=== PATIENT | female | born 1955 | race Caucasian/White ===

== ENCOUNTER 2021-10-05 11:14 | Emergency (ER) | payer MEDICARE, SELFPAY ==
[2021-10-05 11:18] VITALS: BP 175/65; PULSE 100; RESP 20; TEMP 37; O2SAT 97
--- NOTE | 2021-10-05 11:36 | ECG_ITS ---
Measurements Intervals [place] Rate: 66 P: 163 WA: 161 QRS: -21 QRSD: 95 T: 124 QT: 376 QTc: 396 Interpretive Statements SINUS RHYTHM BORDERLINE LEFT AXIS DEVIATION NONSPECIFIC ST & T-WAVE ABNORMALITY BORDERLINE ECG NO PREVIOUS ECG AVAILABLE FOR COMPARISON Electronically Signed On 10-05-2021 16:12:02 CDT by Adalid Boyce M.D.
--- NOTE | 2021-10-05 11:36 | ED.ABDPAIN ---
HPI - Abdominal Pain General Chief Complaint: Abdominal Pain Stated Complaint: abd pain, vomiting Time Seen by Provider: 10/05/21 11:30 History of Present Illness HPI narrative: 66-year-old female with diabetes presented the emergency room for evaluation of epigastric bloating and nausea vomiting for 4 days. Patient reports multiple episodes of nonbilious nonbloody vomiting. Denies any abdominal pain. States that prior to vomiting, when she has to burp. Denies any constipation or diarrhea. Denies any fevers Related Data Allergies Allergy/AdvReac Type Severity Reaction Status Date / Time Penicillins Allergy Unknown Rash Verified 10/05/21 11:26 Review of Systems Review of Systems: CONSTITUTIONAL: Denies fever, chills, or sweats. EYES: Denies visual changes, redness, or discharge. ENT: Denies rhinorrhea, congestion, sore throat, or otalgia. CARDIOVASCULAR: Denies chest pain, palpitations, or edema. RESPIRATORY: Denies cough or dyspnea. GASTROINTESTINAL: Reports nausea and vomiting GENITOURINARY: Denies dysuria or hematuria. SKIN: Denies rash or itching. MUSCULOSKELETAL: Denies back pain, joint pain, or myalgia. NEUROLOGIC: Denies headache, numbness, dizziness, or weakness. PSYCHIATRIC: Denies anxiety or depression. Exam Narrative: GENERAL: Well-appearing, well-nourished, no physical limitations, and in no acute distress. HEAD: Normocephalic, atraumatic. EYES: Conjunctivae normal, PERRLA and EOMI. CHEST: Clear to auscultation. No respiratory distress. No wheezes rales or rhonchi. No tenderness. HEART: Regular rate and rhythm. No murmur heard. Normal peripheral pulses. ABDOMEN: Soft, nontender, nondistended, normal active bowel sounds. BACK: No CVA tenderness EXTREMITIES: Normal range of motion. No edema. SKIN: Warm, dry, no rash. No noted wounds NEURO: No focal deficits. Alert and oriented x3. MAEW. CN's II-XI intact bilaterally, normal gait PSYCH: Cooperative. Normal mood and affect. Course Vital Signs Vital signs: Vital Signs Temperature 37.0 C 10/05/21 11:18 Pulse Rate 100 10/05/21 11:18 Respiratory Rate 20 10/05/21 11:18 Blood Pressure 175/65 H 10/05/21 11:18 Pulse Oximetry 97 08/24/22 11:18 Oxygen Delivery Room Air 10/05/21 11:18 Temperature 37.0 C 10/05/21 11:18 Pulse Rate 78 10/05/21 13:40 Respiratory Rate 18 10/05/21 13:40 Blood Pressure 148/78 H 10/05/21 13:40 Pulse Oximetry 98 10/05/21 13:40 Oxygen Delivery Room Air 10/05/21 11:18 MDM - Abdominal Pain Lab Data Result diagrams: 10/05/21 11:34 10/05/21 12:15 Labs: Lab Results 10/05/21 10/05/21 10/05/21 Range/Units 11:34 12:13 12:15 WBC 8.3 (4.5-10.0) K/mm3 RBC 4.97 (4.2-5.4) M/mm3 Hgb 14.5 (12.0-15.0) g/dL Hct 44.7 (37.0-47.0) % MCV 89.9 (80-100) fl MCH 29.2 (26-34) pg MCHC 32.4 (32-36) g/dl RDW 14.2 (11.5-14.5) % Plt Count 299 (150-375) k/mm3 MPV 10.0 (7.4-10.4) fl Immature Gran % (Auto) 0.2 (0-0.5) % Neut % (Auto) 72.1 (45.5-73.1) % Lymph % (Auto) 18.1 L (18.3-44.2) % [place] % (Auto) 7.1 (2.6-8.5) % Eos % (Auto) 1.7 (0-4.4) % Baso % (Auto) 0.8 (0.2-1.2) % Lymph # (Auto) 1.50 (0.9-3.2) K/mm3 [place] # (Auto) 0.6 (0.1-0.6) K/mm3 Eos # (Auto) 0.1 (0-0.3) K/mm3 Baso # (Auto) 0.1 (0.0-0.1) K/mm3 Abs Immat Gran (auto) 0.02 (0.00-0.031) K/mm3 Absolute Neuts (auto) 6.0 (1.3-6.7) K/mm3 Absolute Nucleated RBC 0.0 (0.0-0.012) K/mm3 Nucleated RBC % 0.0 (0.0-0.2) % Sodium 139 (137-145) mmol/L Potassium 4.3 (3.4-5.0) mmol/L Chloride 103 (98-107) mmol/L Carbon Dioxide 28 (22-30) mmol/L Anion Gap 8 (8-16) mmol/L BUN 19 H (7-17) mg/dL Creatinine 0.80 (0.7-1.0) mg/dL Estim Creat Clear Calc Not Reportable Estimated GFR > 60 (59 - ) Glucose 158 H (65-110) mg/dL Calcium 8.8 (8.4-10.2) mg/dL Total Bilirubin 0.6
[2021-10-05 11:45] LABS: Basophils Absolute Auto 0.1 K/mm3 (0.0-0.1); Basophils Percent Auto 0.8 % (0.2-1.2); Eosinophils Absolute Auto 0.1 K/mm3 (0-0.3); Eosinophils Percent Auto 1.7 % (0-4.4); Hematocrit 44.7 % (37.0-47.0); Hemoglobin 14.5 g/dL (12.0-15.0); Immature Granulocyte Absolute 0.02 K/mm3 (0.00-0.031); Immature Granulocyte Percent A 0.2 % (0-0.5); Lymphocytes Percent Auto 18.1 % (18.3-44.2); Mean Corpuscular HGB Conc 32.4 g/dl (32-36); Mean Corpuscular Hemoglobin 29.2 pg (26-34); Mean Corpuscular Volume 89.9 fl (80-100); Monocytes Absolute Auto 0.6 K/mm3 (0.1-0.6); Monocytes Percent Auto 7.1 % (2.6-8.5); Neutrophils Percent Auto 72.1 % (45.5-73.1); Platelet Count Result 299 k/mm3 (150-375); Red Blood Count 4.97 M/mm3 (4.2-5.4); Red Cell Distribution Width 14.2 % (11.5-14.5); White Blood Count 8.3 K/mm3 (4.5-10.0)
[2021-10-05] MEDS: SODIUM CHLORIDE 0.9% IV 1,000 ML 999 ML IV CONT (11:57)
[2021-10-05 12:17] VITALS: BP 144/72; PULSE 70; RESP 16; O2SAT 97
[2021-10-05 12:36] LABS: Appearance Urine Clear (Clear); Bilirubin Urine 1+ (Negative); Blood Urine Negative (Negative); Color Urine Yellow (Yellow); Glucose Urine UA Negative (Negative); Ketones Urine Negative (Negative); Leukocyte Esterase Ur Negative LEU/UL (Negative); Nitrate Urine Negative (Negative); Protein Urine 3+ mg/dL (Negative); Specific Grav Ur >= 1.030 (1.001-1.035); Urobilinogen Urine 0.2 mg/dL (<2.0); pH Urine 5.5 (5.0-9.0)
[2021-10-05 12:39] LABS: Alanine Aminotransferase 35 U/L (6-35); Albumin Level 4.3 g/dL (3.5-5.1); Alkaline Phosphatase 70 U/L (38-126); Anion Gap 8 mmol/L (8-16); Aspartate Amino Transferase 31 U/L (14-36); Bilirubin,Total 0.6 mg/dL (0.2-1.3); Blood Urea Nitrogen 19 mg/dL (7-17); Calcium 8.8 mg/dL (8.4-10.2); Carbon Dioxide 28 mmol/L (22-30); Chloride 103 mmol/L (98-107); Estimated Glomerular Filt Rate > 60; Glucose 158 mg/dL (65-110); Lipase 75 U/L (23-300); Potassium 4.3 mmol/L (3.4-5.0); Sodium 139 mmol/L (137-145)
[2021-10-05 12:43] LABS: Bacteria Urine Trace /hpf; Mucus Urine Rare /lpf; RBC Urine 0-2 /hpf (0-2); Squamous Epithelial Cell Urine Rare /hpf (Few); WBC Urine 0-3 /hpf
[2021-10-05 12:48] LABS: Add Urine Microscopic? YES
[2021-10-05 13:40] VITALS: BP 148/78; PULSE 78; RESP 18; O2SAT 98
== END 2021-10-05 13:41 | disposition home or self-care (01) ==
PROVIDERS: Preventive Medicine Aerospace Medicine; Emergency Provider Nurse Practitioner Family; PCP Family Medicine
DX: R11.2 Nausea with vomiting, unspecified (principal); R94.31 Abnormal electrocardiogram [ECG] [EKG]
CPT/HCPCS: 36415; 80053; 81001; 83690; 85025; 93005; 96360; 99283; A9270; J7030

== ENCOUNTER 2022-01-12 00:33 | Day surgery (SDC) | payer MEDICARE, SELFPAY ==
[2021-12-27 14:44] VITALS: BMI 34.3
--- NOTE | 2022-01-11 15:14 | PM.HPGS ---
History of Present Illness History of Present Illness Consent: Risks, benefits, and alternatives have been discussed and questions answered. Patient agrees to proceed with procedure. Chief complaint: family hx colon ca, hx colon polyps Narrative: Cira Umanzor is a 66 year old female Here for colon cancer screening. She has a family history of colon cancer in both parents. Review of Systems Review of Systems: All systems reviewed & are unremarkable except as noted in HPI and below PMFSH Social History Social History Smoking status: Former smoker Tobacco type: cigarettes Living arrangements: with family Meds Home Medications and Allergies Home Medications Medication Instructions Recorded Confirmed Type glimepiride 2 mg tablet 4 mg PO DAILY 12/27/21 01/12/22 History lisinopril 20 mg tablet 20 mg PO DAILY 12/27/21 01/12/22 History metformin 500 mg tablet,extended 500 mg PO DAILY 12/27/21 01/12/22 History release 24 hr rosuvastatin 40 mg tablet 40 mg PO DAILY 12/27/21 01/12/22 History Allergies Allergy/AdvReac Type Severity Reaction Status Date / Time Penicillins Allergy Unknown Rash Verified 01/12/22 06:17 Exam Const: General: alert Orientation/consciousness: patient oriented x3 Resp: Auscultation: clear to auscultation bilaterally Cardio: Rhythm: regular rhythm GI: GI Palp: Yes Soft to palpation and No Tenderness to palpation present (GI) Neuro: General: patient oriented x3 Assessment and Plan Assessment and plan (1) Colon cancer screening: Code(s): Z12.11 - Encounter for screening for malignant neoplasm of colon Status: Acute Assessment and Plan: Colonoscopy with possible biopsy or polypectomy or cautery or injection of substances.
[2022-01-12 06:20] VITALS: BP 147/67; PULSE 71; RESP 20; TEMP 36.2; O2SAT 97; BMI 33.7
[2022-01-12] MEDS: LACTATED RINGERS 1,000 ML 150 ML IV CONT (06:23)
[2022-01-12 06:42] LABS: Glucose Point of Care 161 mg/dl (65-105)
--- NOTE | 2022-01-12 07:16 | WPDANESEPPF ---
Anes - Initial Pre Proc Eval Procedure: Operation Date: 01/12/22 07:30 Proposed Procedures p Screening Colonoscopy - Reji Degroot MD Date/Time: 01/12/22 07:16 Surgeon: Reji Degroot MD Pre Op Diagnosis: family hx colon ca, hx colon polyps Patient Data Age: 66 Gender: F Height: 1.63 m Weight: 89.3 kg Last Vital Signs Temp 36.2 C L 01/12/22 06:20 Pulse 71 01/12/22 06:20 Resp 20 01/12/22 06:20 BP 147/67 H 01/12/22 06:20 Pulse Ox 97 01/12/22 06:20 O2 Del Method Room Air 01/12/22 06:20 Allergies Allergy/AdvReac Type Severity Reaction Status Date / Time Penicillins Allergy Unknown Rash Verified 01/12/22 06:17 Home Medications Medication Instructions Recorded Confirmed Type glimepiride 2 mg tablet 4 mg PO DAILY 12/27/21 01/12/22 History lisinopril 20 mg tablet 20 mg PO DAILY 12/27/21 01/12/22 History metformin 500 mg tablet,extended 500 mg PO DAILY 12/27/21 01/12/22 History release 24 hr rosuvastatin 40 mg tablet 40 mg PO DAILY 12/27/21 01/12/22 History Laboratory Tests 01/12/22 06:39 POC Capillary Glucose 161 mg/dl H mg/dl (65-105) Patient hx anesthesia problems: none Family hx anesthesia problems: pseudocholinesterase deficiency (daughter) Results Review: All pre-operative results and documents have been reviewed as part of the pre-operative evaluation. [facility] Past Medical History Medical History Arthritis Diabetes Hyperlipidemia Hypertension Social History Social History Smoking status: Former smoker Tobacco type: cigarettes Living arrangements: with family Anes - Eval Final PreProcedure Day of Procedure 01/12/22 07:16 Patient weight: obese Heart: regular rate and rhythm Lungs: clear to auscultation Airway: Mallampati scale class II Neurological: alert and oriented Last oral intake: >/= 8 hours ASA classification: III Emergent: no Anesthetic plan: proceed Anesthesia type and monitoring: general GIVS and standard monitoring Results Review: All pre-operative results and documents have been reviewed as part of the pre-operative evaluation. Informed Consent: The patient's anesthetic plan and its attendant risks and benefits were discussed with the patient/family/POA. Questions were solicited and answers provided to the satisfaction of the patient/family/POA.
[2022-01-12 07:41] VITALS: BP 91/46; PULSE 62; RESP 27; O2SAT 97
[2022-01-12 07:51] VITALS: BP 97/56; PULSE 64; RESP 16; O2SAT 97
[2022-01-12 08:01] VITALS: BP 120/44; PULSE 58; RESP 16; O2SAT 98
== END 2022-01-12 08:11 | disposition home or self-care (01) ==
PROVIDERS: PCP Family Medicine; Visit Provider Internal Medicine Gastroenterology
PROC: 0DJD8ZZ Inspection of Lower Intestinal Tract, Via Natural or Artificial Opening Endoscopic (ICD-10-PCS; CPT 45378; principal; 2022-01-12 07:30)
DX: Z12.11 Encounter for screening for malignant neoplasm of colon (principal); K57.30 Diverticulosis of large intestine without perforation or abscess without bleeding; Z80.0 Family history of malignant neoplasm of digestive organs; E11.9 Type 2 diabetes mellitus without complications; E78.5 Hyperlipidemia, unspecified; I10 Essential (primary) hypertension; Z79.84 Long term (current) use of oral hypoglycemic drugs; Z87.891 Personal history of nicotine dependence; E66.9 Obesity, unspecified; Z68.33 Body mass index [BMI] 33.0-33.9, adult
CPT/HCPCS: G0105; 82948; J2704; J7120

== ENCOUNTER 2022-11-30 17:45 | Emergency (ER) | payer MEDICARE, SELFPAY ==
--- NOTE | ~2022-11-30 | CT_ITS ---
EXAMINATION: CT abdomen pelvis w con INDICATION: Right-sided abdominal pain TECHNIQUE: Computed tomographic images of the abdomen and pelvis were obtained after the administrati on of 100 cc of Omnipaque 350 intravenous contrast. The dose-length product (DLP) was 889.53 mGy-cm. Automated exposure control and iterative reconstruction technique were employed. COMPARISON: 09/11/2017 FINDINGS: There is a stable 6 mm nodule abutting the major fissure on the right. Punctate calcificati ons in an otherwise normal spleen likely represent healed granulomatous disease. The liver, pancreas, and adrenal glands are normal. Stones are present in the nondistended gallbladder. Cysts of the kidn eys measure up to 3.6 cm on the right. There is calcified atherosclerosis of the aorta and many of th e other arteries. No pathologically enlarged abdominal or pelvic lymph nodes are identified. No free intraperitoneal gas or evidence of bowel obstruction. There is mild lumbar spondylosis. There is a sm all umbilical hernia containing fat. IMPRESSION: 1. No CT correlate for the patient's symptoms. Reviewed, dictated and finalized at location F.
[2022-11-30 18:03] VITALS: BP 149/68; PULSE 87; RESP 18; TEMP 36.6; O2SAT 96
[2022-11-30 18:19] LABS: Basophils Absolute Auto 0.1 K/mm3 (0.0-0.1); Basophils Percent Auto 0.8 % (0.2-1.2); Eosinophils Absolute Auto 0.1 K/mm3 (0-0.3); Eosinophils Percent Auto 1.3 % (0-4.4); Hemoglobin 13.9 g/dL (12.0-15.0); Immature Granulocyte Absolute 0.02 K/mm3 (0.00-0.031); Immature Granulocyte Percent A 0.2 % (0-0.5); Lymphocytes Absolute Auto 1.38 K/mm3 (0.9-3.2); Lymphocytes Percent Auto 14.6 % (18.3-44.2); Mean Corpuscular HGB Conc 31.6 g/dl (32-36); Mean Corpuscular Hemoglobin 28.5 pg (26-34); Mean Corpuscular Volume 90.3 fl (80-100); Mean Platelet Volume 10.2 fl (7.4-10.4); Monocytes Absolute Auto 0.7 K/mm3 (0.1-0.6); Monocytes Percent Auto 7.1 % (2.6-8.5); Neutrophils Absolute Auto 7.2 K/mm3 (1.3-6.7); Platelet Count Result 299 k/mm3 (150-375); Red Blood Count 4.87 M/mm3 (4.2-5.4); Red Cell Distribution Width 14.3 % (11.5-14.5); White Blood Count 9.5 K/mm3 (4.5-10.0)
[2022-11-30 18:30] LABS: Alanine Aminotransferase 38 U/L (6-35); Albumin Level 4.3 g/dL (3.5-5.1); Alkaline Phosphatase 83 U/L (38-126); Anion Gap 10 mmol/L (8-16); Aspartate Amino Transferase 30 U/L (14-36); Bilirubin,Total 0.7 mg/dL (0.2-1.3); Blood Urea Nitrogen 24 mg/dL (7-17); Calcium 9.1 mg/dL (8.4-10.2); Carbon Dioxide 21 mmol/L (22-30); Chloride 104 mmol/L (98-107); Estimated CRCL calculation 63 ml/min; Estimated Glomerular Filt Rate > 60; Glucose 170 mg/dL (65-110); Lipase 81 U/L (23-300); Potassium 3.7 mmol/L (3.4-5.0); Sodium 135 mmol/L (137-145)
[2022-11-30 19:30] LABS: Appearance Urine Cloudy (Clear); Bacteria Urine None Seen /hpf; Bilirubin Urine Negative (Negative); Blood Urine Negative (Negative); Color Urine Dark Yellow (Yellow); Glucose Urine UA Negative (Negative); Ketones Urine Negative (Negative); Leukocyte Esterase Ur 1+ LEU/UL (Negative); Nitrate Urine Negative (Negative); Protein Urine 2+ mg/dL (Negative); RBC Urine 0-2 /hpf (0-2); Specific Grav Ur 1.023 (1.001-1.035); Squamous Epithelial Cell Urine Moderate /hpf (Few)
[2022-11-30] MEDS: ONDANSETRON INJ 4 MG/2 ML VIAL IV PUSH (19:38)
[2022-11-30] MEDS: SODIUM CHLORIDE 0.9% IV 1,000 ML 999 ML IV CONT (19:38)
[2022-11-30 19:43] LABS: Add Urine Microscopic? YES
--- NOTE | 2022-11-30 19:49 | ED.GENADULT ---
HPI - General Adult General Chief complaint: Abdominal Pain Stated complaint: R ABD pain/diarrhea/lethargic Time Seen by Provider: 11/30/22 19:10 History of Present Illness HPI narrative: Patient 67-year-old female who presents the emergency department with chief complaint of abdominal pain. Patient reports that since this weekend she has been having diarrhea and nausea. Patient states that her stool has turned to a renee colored and reports that she started having pain in the right side of her abdomen. Patient reports that the pain is not improved or worsened by anything. But has improved gradually on its own without any intervention. The patient denies fever reports her only abdominal surgery is a hysterectomy. Patient denies sick contacts denies travel Related Data Allergies Allergy/AdvReac Type Severity Reaction Status Date / Time Penicillins Allergy Swelling Verified 11/30/22 18:06 Review of Systems Review of Systems: A 10 system review of systems was completed on the patient and is negative except for what is stated in the HPI. Nursing and ancillary documentation was reviewed. Exam Narrative: GENERAL: Well-appearing, well-nourished, and in no acute distress. HEAD: Normocephalic, atraumatic. EYES: PERRLA and EOMI. ENT: Nares clear, no rhinorrhea or epistaxis. Mucous membranes moist. NECK: Supple. CHEST: Clear to auscultation. No respiratory distress. HEART: Regular rate and rhythm. No murmur heard. Normal peripheral pulses. ABDOMEN: Soft, tenderness to palpation in the right side of the abdomen worse in the right upper quadrant, nondistended, normal active bowel sounds. EXTREMITIES: Normal range of motion. No edema. SKIN: Warm, dry, no rash. NEURO: No focal deficits. Alert and oriented x3. PSYCH: Normal mood and affect. Course Vital Signs Vital signs: Vital Signs Temperature 36.6 C 11/30/22 18:03 Pulse Rate 87 11/30/22 18:03 Respiratory Rate 18 11/30/22 18:03 Blood Pressure 149/68 H 11/30/22 18:03 Pulse Oximetry 96 11/30/22 18:03 Oxygen Delivery Room Air 11/30/22 18:03 Temperature 36.6 C 11/30/22 18:03 Pulse Rate 87 11/30/22 18:03 Respiratory Rate 18 11/30/22 18:03 Blood Pressure 149/68 H 11/30/22 18:03 Pulse Oximetry 96 11/30/22 18:03 Oxygen Delivery Room Air 11/30/22 18:03 Medical Decision Making MDM Narrative Medical decision making narrative: Differential diagnosis includes gastroenteritis UTI, colitis diverticulitis, cholecystitis Patient received IV fluids Zofran and underwent laboratory testing. CBC was within normal limits electrolytes showed normal renal function liver enzymes were essentially unremarkable bilirubin was 0.7 AST was 30 ALT was 38 which was slightly elevated alk phos was normal at 83 lipase was normal at 81 urinalysis was cloudy with 1+ leukocyte esterase and 6-10 white blood cells. The patient will be treated for UTI CT scan of the abdomen pelvis showed no acute abnormality Vital Signs Vital Signs: Vital Signs Temperature 36.6 C 11/30/22 18:03 Pulse Rate 87 11/30/22 18:03 Respiratory Rate 18 11/30/22 18:03 Blood Pressure 149/68 H 11/30/22 18:03 Pulse Oximetry 96 11/30/22 18:03 Oxygen Delivery Room Air 11/30/22 18:03 Temperature 36.6 C 11/30/22 18:03 Pulse Rate 87 11/30/22 18:03 Respiratory Rate 18 11/30/22 18:03 Blood Pressure 149/68 H 11/30/22 18:03 Pulse Oximetry 96 11/30/22 18:03 Oxygen Delivery Room Air 11/30/22 18:03 Lab Data 11/30/22 18:10 11/30/22 18:10 Labs: Lab Results 11/30/22 11/30/22 Range/Units 18:10 19:10 WBC 9.5 (4.5-10.0) K/mm3 RBC 4.87 (4.2-5.4) M/mm3 Hgb 13.9 (12.0-15.0) g/dL Hct 44.0 (37.0-47.0) % MCV 90.3 (80-100) fl MCH 28.5 (26-34) pg MCHC 31.6 L (32-36) g/dl RDW 14.3 (11.5-14.5) % Plt Count 299 (150-375) k/mm3 MPV 10.2 (7.4-10.4) fl Immature Gran % (Auto) 0
[2022-11-30 22:00] VITALS: BP 140/72; PULSE 78; RESP 18; TEMP 36.7; O2SAT 100
== END 2022-11-30 22:01 | disposition home or self-care (01) ==
PROVIDERS: Emergency Medicine; Emergency Provider Emergency Medicine; PCP Family Medicine
DX: N39.0 Urinary tract infection, site not specified (principal); R19.7 Diarrhea, unspecified; R10.11 Right upper quadrant pain
CPT/HCPCS: 36415; 74177; 80053; 81001; 83690; 85025; 87086; 96361; 96374; 99284; J2405; J7030; Q9967

== ENCOUNTER 2023-07-11 07:49 | Outpatient (CLI) | payer MEDICARE, SELFPAY ==
--- NOTE | 2023-07-11 13:43 | P.PCNPFT_ITS ---
PFT Procedure Performed PFT Procedure Performed Spirometry with Pre/Post Bronchodilator Plethysmography (Lung Vol) Diffusing Cap (DLCO) Flow Vol Loop PFT Interpretation Lung volumes were measured with the body plethysmography method. The lung volumes are unremarkable. Spirometry showed diminished expiratory flow rates and a diminished FEV1 to FVC ratio 54%, consistent with obstructive airway disease. Following administration of a bronchodilator, there was significant increase in the forced vital capacity. Lung diffusion capacity is moderately reduced at 50% predicted. The diminished lung diffusion capacity coupled with diminished alveolar volume and a normal DLCO/VA ratio may indicate loss of alve olar capillary structure as seen in emphysema or interstitial lung disease. Clinical correlation advised. The flow-volume loop is consistent with obstructive airway disease. Impression: Moderate obstructive airway disease with significant response to bronchodilators on this testing. Moderately reduced lung diffusion capacity.
--- NOTE | 2023-07-18 08:42 | WPDSIXMINUTE ---
Six Minute Walk Procedure Procedure Performed Pulmonary Stress Test (6 min walk) Six Minute Walk Six Minute Walk: This 6 minute walk test was conducted with the patient breathing ambient air. The pre walk baseline oxyhemoglobin saturation was 96%. The patient walked 305 m with no stops during testing. During the walk the oxyhemoglobin saturation remained in the range of 90% to 96%. Impression: No evidence of oxyhemoglobin desaturation on this testing.
== END 2023-07-11 07:50 | disposition home or self-care (01) ==
PROVIDERS: PCP Family Medicine; Visit Provider Physician Assistant
DX: R06.09 Other forms of dyspnea (principal); J44.9 Chronic obstructive pulmonary disease, unspecified; Z87.891 Personal history of nicotine dependence
CPT/HCPCS: 94060; 94618; 94726; 94729

== ENCOUNTER 2023-09-25 01:50 | Day surgery (SDC) | payer MEDICARE, SELFPAY ==
[2023-09-11 12:03] VITALS: BMI 33.7
[2023-09-25 10:05] VITALS: BP 149/61; PULSE 72; RESP 20; TEMP 36.3; O2SAT 97; BMI 33.9
--- NOTE | 2023-09-25 10:20 | WPDANESEPPF ---
Anes - Initial Pre Proc Eval Procedure: Operation Date: 09/25/23 11:30 Proposed Procedures p Esophagogastroduodenoscopy - Alejandro Best MD Date/Time: 09/25/23 10:20 Surgeon: Alejandro Best MD Pre Op Diagnosis: GERD Patient Data Age: 68 Gender: F Height: 1.63 m Weight: 89.25 kg Allergies Allergy/AdvReac Type Severity Reaction Status Date / Time Penicillins Allergy Severe Hives Verified 09/25/23 10:13 simvastatin AdvReac Intermediate Muscle Pain Verified 09/25/23 10:13 Home Medications Medication Instructions Recorded Confirmed Type glimepiride 2 mg tablet 4 mg PO BID 12/27/21 09/25/23 History metformin 500 mg tablet,extended 500 mg PO BID 12/27/21 09/25/23 History release 24 hr albuterol sulfate 90 mcg/actuation 2 puff inhalation Q4H PRN 04/23/23 09/25/23 History aerosol inhaler Shortness Of Breath Or Wheezing pantoprazole 40 mg tablet,delayed 40 mg PO QAM PRN REFLUX 04/23/23 09/25/23 History release atorvastatin 80 mg tablet 80 mg PO DAILY 09/11/23 09/25/23 History lisinopril 2.5 mg tablet 2.5 mg PO DAILY 09/11/23 09/25/23 History ayzrpxiu-cvoymbmh-qddaq acid 120 2 tablet PO DAILY 09/11/23 09/25/23 History mcg-lutein 100 mcg-herb no.329 tablet (Alive Diabetic Multivitamin) Patient hx anesthesia problems: none Family hx anesthesia problems: none Results Review: All pre-operative results and documents have been reviewed as part of the pre-operative evaluation. [facility] Past Medical History Medical History Albuminuria Arthritis Chronic cough Diabetes Dyslipidemia Essential hypertension Gastroesophageal reflux disease Hyperlipidemia Hypertension Lung nodules Osteoarthritis Osteopenia Osteoporosis Polyp of colon Varicose veins of lower extremity Social History Social History Smoking packs per day: 1 Smoking cigarettes per day: 20.0 Years smoked: 40 Smoking pack-years: 40.00 Smoking status: Former smoker Tobacco type: cigarettes Smokeless tobacco user: chewing tobacco Alcohol intake: current Alcohol use details: Occasional Substance use: never Substance use type: does not use Living arrangements: with family Spiritual care concerns: No Anes - Eval Final PreProcedure Day of Procedure 09/25/23 10:20 Patient weight: overweight Emergent: no Anesthetic plan: delay Results Review: All pre-operative results and documents have been reviewed as part of the pre-operative evaluation. Pt is to have a full cardiac workup next week w visit and stress test. She has been having some dypsnea w activity. Discussed w pt and that will delay her case today for elective GI procedure and have cardiac eval first. Future GI workup pending results of cardiac eval. Discussed w GI RNs. Informed Consent: The patient's anesthetic plan and its attendant risks and benefits were discussed with the patient/family/POA. Questions were solicited and answers provided to the satisfaction of the patient/family/POA.
--- NOTE | 2023-09-25 10:33 | SUR.PREOP ---
Following patient conversation with Dr. Kuhn, procedure will be canceled for today due to cardiac work-up needs.
== END 2023-09-25 10:35 | disposition home or self-care (01) ==
PROVIDERS: PCP Internal Medicine; Visit Provider Internal Medicine Gastroenterology
PROC: 0DJ08ZZ Inspection of Upper Intestinal Tract, Via Natural or Artificial Opening Endoscopic (ICD-10-PCS; CPT 43235; principal; 2023-09-25 11:30)
DX: K21.9 Gastro-esophageal reflux disease without esophagitis (principal); Z53.8 Procedure and treatment not carried out for other reasons
CPT/HCPCS: 99211; G0463

== ENCOUNTER 2024-01-15 09:48 | Outpatient (CLI) | payer MEDICARE, SELFPAY ==
--- NOTE | ~2024-01-15 | CT_ITS ---
CT Scan of the Chest without Contrast: Clinical Indication: Lung cancer screening, nicotine dependence Technique: Contiguous sections were acquired throughout the chest without intravenous contrast. Dose reduction technique was used on this scan by utilizing automated exposure control and iterative recon struction technique. The dose-length product (DLP) was 148.00 mGy-cm. Findings: There is no evidence of any significant mediastinal, hilar or axillary lymphadenopathy. The mediastin al soft tissues appear normal. There is no evidence of pleural or pericardial effusion. 4 mm right upper lobe pulmonary nodule present (axial image 38). Additional 4 mm right upper lobe nod ule present (axial image 50). 7 mm right lower lobe pulmonary nodule present (axial image 72). 4 mm l ingular nodule present (axial image 74). Images through the upper abdomen reveal calcified gallstone. T7 compression fracture present, age-ind eterminate. Impression: Lung RADS 3: Probably benign. Six-month follow-up CT advised. Additional findings, as above. Reviewed, dictated and finalized at location . [facility] Impression: Lung RADS 3: Probably benign. Six-month follow-up CT advised. Additional findings, as above.
== END 2024-01-15 09:49 | disposition home or self-care (01) ==
PROVIDERS: PCP Internal Medicine; Visit Provider Physician Assistant
DX: Z12.2 Encounter for screening for malignant neoplasm of respiratory organs (principal); Z87.891 Personal history of nicotine dependence; R91.8 Other nonspecific abnormal finding of lung field
CPT/HCPCS: 71271

== ENCOUNTER 2024-09-08 08:56 | Outpatient (CLI) | payer MEDICARE, SELFPAY ==
--- NOTE | ~2024-09-08 | CT_ITS ---
CT Scan of the Chest without Contrast: Clinical Indication: Pulmonary nodule Technique: Contiguous sections were acquired throughout the chest without intravenous contrast. Dose reduction technique was used on this scan by utilizing automated exposure control and iterative recon struction technique. The dose-length product (DLP) was 172.28 mGy-cm. COMPARISON: 01/15/2024 Findings: There is no evidence of any significant mediastinal, hilar or axillary lymphadenopathy. The mediastin al soft tissues appear normal. There is no evidence of pleural or pericardial effusion. Stable 4 mm right upper lobe pulmonary nodule present (axial image 36). Stable additional 3 mm right upper lobe nodule (axial image 48). Stable 7 mm right lower lobe pulmonary nodule (axial image 69). Images through the upper abdomen reveal calcified gallstone. Chronic T7 compression deformity present . Impression: Lung RADS 2: Benign appearance. 12 month follow-up screening CT advised. Reviewed, dictated and finalized at [facility]. Impression: Lung RADS 2: Benign appearance. 12 month follow-up screening CT advised.
--- OUTSIDE RECORDS SUMMARY | 2024-09-08 09:10 | XMS_ITS | Referral Summary ---
Author Organization [facility] Address [facility] [place] [address] Care Team Providers Care Home Aide Name Role Phone Aminah Lim MD Primary Care Provide r Allergies Active Allergy Reactions Criticality Noted Date Comments Penicillins Rash Medium 09/20/2023 Simvastatin Muscle pain Medium 09/20/2023 Medications atorvastatin (LIPITOR) 80 mg tablet Take 1 tablet every day by oral route. Active Accu-Chek Guide test strips strip USE 1 STRIP TWICE DAILY TO TEST BLOOD GLUCOSE 09/12/2023 Active Accu-Chek Guide Glucose Meter misc USE TO TEST BLOOD GLUCOSE TWICE A DAY 09/10/2023 Active glimepiride (AMARYL) 2 mg tablet Take by mouth 2 (two) times a day Active Accu-Chek Softclix Lancets lancets 09/10/2023 Act gilma lisinopriL (PRINIVIL,ZESTR IL) 2.5 mg tablet Take 1 tablet every day by oral route for 90 days. Active metFORMIN XR (GLUCOPHAGE XR) 500 mg 24 hr tablet 09/10/[address] (PROTONIX) 40 mg EC tablet Take 1 tablet(s) every day by oral route. Active aspirin 81 mg enteric coated tabletIndicatio ns:prevention of thrombosis Take 1 tablet (81 mg total) by mouth daily 09/20/2023 Active Active Problems Problem Noted Date Diagnosed Date Enlarged pulmonary artery 09/20/2023 Former smoker 09/20/2023 Coronary artery calcification seen on CT scan Family history of premature CAD 09/20/2023 Hyperlipidemia associated with type 2 diabetes m ellitus 09/20/2023 Hypertension associated with diabetes 09/20/2023 Lipid screening 09/20/2023 Essential (primary) hypertension 09/20/2023 ALEXANDRE (dyspnea on exertion) 09/20/2023 Social History Tobacco Use Types Packs/Day Years Used Date Smoking Tobacco: Former Cigarettes S tarted: 2019 Smokeless Tobacco: Never Tobacco Cessation:Counseling Given: No Comments Unknown Sex and Gender Information Value Date Recorded Sex Assigned at Not on file Legal Sex Female 4:00 PM STOCK ANALYST Gender Identity Not on file Sexual Orientation Not on file Last Filed Vital Signs Vital Sign Reading Time Taken Comments Blood Pressure 128/64 01/08/2024 1:06 PM STOCK ANALYST Pulse 68 01/08/2024 1:06 PM STOCK ANALYST Temperature - - Respiratory Rate 14 09/20/2023 8:17 AM CDT Oxygen Saturation 95% 01/08/2024 1:06 PM STOCK ANALYST Inhaled Oxygen Concentration - - Weight 91.2 kg (201 lb) 01/08/2024 1:06 PM STOCK ANALYST Height 162.6 cm (5' 4) 01/08/2024 1:06 PM STOCK ANALYST Body Mass Index 34.5 01/08/2024 1:06 PM STOCK ANALYST Plan of Treatment Not on file Procedures Procedure Name Priority Date/Time Associated Diagnosis Comments LIPID PANEL Routine 11/23/2023 3:21 PM CDT from Last 3 Months or Most Recently Relevant to Health Maintenance Results * Lipid panel (11/23/2023 3:21 PM CDT) SCRIBED Cholesterol, Total 158 <200 EXTERNAL LAB SCRIBED HDL 60 >40 EXTERNAL LAB SCRIBED LDL 78 <100 EXTERNAL LAB SCRIBED Triglycerides 102 <150 EXTERNAL LAB Blood us Historical Provider LAB BLOOD ORDERABLES Edit ed Result - Final EXTERNAL LAB from Last 3 Months or Most Recently Relevant to Health Maintenance Insurance [facility] MEDICARE HMO Care Teams Home Aide Relationship Specialty Start Date End Date Aminah Lim MD [address] [address] PCP - General Internal Medicine 01/08/24
--- OUTSIDE RECORDS SUMMARY | 2024-09-08 09:10 | XMS_ITS | Continuity of Care Document ---
Author Organization [facility] Address [address] [place] [address] [address] [place] [address] Phone Care Team Providers Care Director Community Health Nursing Name Role Phone Doisy, Edward Unavailable Unavailable Advance Directives Directive Yes / No Effective Date File Name No Information Encounters Encounter Description Practice Location Reason(s) For Visit Diagnoses Date Provider Providers Copied on Encounter [facility], [address] [place], [place], [id number], [place] tel:[phone] SEC Formerly named [facility] No Information Apr-2 5-200 5 Doisy Edward. [address] [facility] , [address], [place], [address], [place]. tel:[phone] Family History Family Member Type Diagnosis Age At Onset No Information Payers Payer name Insurance type Covered alliance party ID Authoriza tiruth(s) [facility] Commercial CI [id number] Social History Type Description Quantity Date Captured Comments Sex Female Smoking Status No Information Chief Complaint And Reason For Visit No Information Reason For Referral Reason For Referral No Information History Of Present Illness Encounter Date Complaint History Of Prese nt Illness No Information Functional Status Date Functional Assessmen t No Information Instructions Date Instruction Additional Infor mation No Information Assessments Type Assessment Date No Information Patient Care Teams Name Effective Dates (start - stop) Status Members No Information
--- OUTSIDE RECORDS SUMMARY | 2024-09-08 09:10 | XMS_ITS | Clinical Summary ---
Author Organization [facility] Address [address] [place] [id number] Care Team Providers Care Building Manager Name Role Phone Aminah Lim MD Primary [...] hypertension 09/20/2023 ALEXANDRE (dyspnea on exertion) 09/20/2023 Medical History Medical History Date Comments Diabetes mellitus (HCC) Hyperlipidemia Family History Medical History Relation Name Comments No Known Problems Brother bypass Father No Known Problems Father's Brother No Known Problems Father's Sister No Known Problems Maternal Grandfather Stroke Maternal Grandmother Colon cancer Mother No Known Problems Mother's Brother No Known Problems Mother's Sister No Known Problems Other Heart attack Paternal Grandfather Cancer Paternal Grandmother No Known Problems Sister Relation Name Status Comments Brother Father Alive Father's Brother Father's Sister Maternal Grandfather Maternal Grandmother Mother Mother's Brother Mother's Sister Other Paternal Grandfather Paternal Grandmother Sister Social History Tobacco Use Types Packs/Day Years Used Date Smoking Tobacco: Former Cigarettes S tarted: 2019 Smokeless Tobacco: Never Tobacco Cessation:Counseling Given: No Comments Unknown Sex and Gender Information Value Date Recorded Sex Assigned at Not on file Legal Sex Female 4:00 PM FLOOR LAYER APPRENTICE Gender Identity Not on file Sexual Orientation Not on file Obstetrics History Last Filed Vital Signs Vital Sign Reading Time Taken Comments Blood Pressure 128/64 01/08/2024 1:06 PM FLOOR LAYER APPRENTICE Pulse 68 01/08/2024 1:06 PM FLOOR LAYER APPRENTICE Temperature - - Respiratory Rate 14 09/20/2023 8:17 AM CDT Oxygen Saturation 95% 01/08/2024 1:06 PM FLOOR LAYER APPRENTICE Inhaled Oxygen Concentration - - Weight 91.2 kg (201 lb) 01/08/2024 1:06 PM FLOOR LAYER APPRENTICE Height 162.6 cm (5' 4) 01/08/2024 1:06 PM FLOOR LAYER APPRENTICE Body Mass Index 34.5 01/08/2024 1:06 PM FLOOR LAYER APPRENTICE Plan of Treatment Health Maintenance Due Date Last Done Comments Albumin Creatinine Ratio, Urine 1955 Breast Cancer Screening-Mammogram 1955 Colon Cancer Screening-Colonoscopy 1955 Depression Screening 1955 Fall Risk Assessment 1955 Hemoglobin A1C 1955 Hepatitis C Screening 1955 Osteoporosis Screening-Bone Density Scan 1955 eGFR 1955 Dilated Eye Exam 1955 Foot Exam 1955 DTaP/Tdap/Td Vaccine (1 - Tdap) 1966 Hepatitis B Screening 1973 Zoster Vaccine (1 of 2) 2005 Well Visit 65+ 2020 Covid-19 Vaccine (5 - 2023-2 5 season) 2023 02/11/2021, 05/08/2020, 04/15/2020, Additional history exists Influenza Vaccine (#1) 2024 Lipid Panel 11/22/2024 11/23/2023, 09/20/2023 Pneumococcal vaccine 65+ Completed 08/08/2023, 01/14 Procedures Procedure Name Priority Date/Time Associated Diagnosis [...] Most Recently Relevant to Health Maintenance Insurance [facility] MEDICARE HMO Care Teams Building Manager Relationship Specialty Start Date End Date Aminah Lim MD [address] [place] [address] PCP - General Internal Medicine 01/08/24
--- OUTSIDE RECORDS SUMMARY | 2024-09-08 09:10 | XMS_ITS | Data Portability ---
Author Organization [place] - [facility] [employer], Main Office Address [address] [place] [address] Care Team Providers Care Fixed Income Analyst Name Role Phone KENA LIM Primary Care Provider KENA LIM Referring Provider NICOLE WILLOUGHBY Land Mobile Radio Technician PILLO PHAN Permit Specialist ALEJANDRO MAURICIO Rolling Machine Tender [facility]mon[facility]i [facility] NASREEN BAKER Fashion Styling Intern HILDA PACHECO Animal Trapper Assessment Encounter Date Assessment Date Assessment LastModified by Organization Details LastModified Time 08/30/2023 08/30/2023 08/13/2023: A1C 9.4 Gluc 140, BUN 27 Chol 244, TG 154, LDL 155 Urine micro alb 597.5 Not available 08/30/2023 16:44:21 10/09/2023 10/09/2023 This note is dictated and transcribed by [employer]. Retail Merchandising Manager variances may occur. Despite proofreading, typographical errors may occur. Occasional wrong-word or '[id number]' substitutions may have occurred due to the inherent limitations of voice recording. Read the chart carefully and recognize, using context, where substitutions have occurred. [email or web address] Not available 10/10/2023 12:26:24 11/29/2023 11/29/2023 08/13/2023: A1C 9.4 Gluc 140, BUN 27 Chol 244, TG 154, LDL 155 Urine micro alb 597.5 11/23/2023: A1C 6.8 Urine micro alb 202.4 Gluc 140, BUN 22, ALT/AST 43/41 Not available 11/29/2023 11:59:19 04/17/2024 04/17/2024 08/13/2023: A1C 9.4 Gluc 140, BUN 27 Chol 244, TG 154, LDL 155 Urine micro alb 597.5 11/23/2023: A1C 6.8 Urine micro alb 202.4 Gluc 140, BUN 22, ALT/AST 43/41 Not available 04/17/2024 16:35:41 Plan of Treatment Reminders Order Date Submit Date Provider Last Modified By Organization Details Last Modified Time Details Appointments Any 15 2024 08:45A Isha nguyen MD Not available Not available Not available Lab lipid panel, serum [address] (Lab), [address] [place], [address], 04/17/2024 16:46:53 CBC w/ auto diff [address] (Lab), [address] [place], [address], 04/17/2024 16:46:54 TSH, serum or plasma [address] (Lab), [address] [place], [address], 04/17/2024 16:46:54 CMP, serum or plasma [address] (Lab), [address] [place], [address], 04/17/2024 16:46:54 vitamin D, 25-hydrox y, total, serum [address] (Lab), [address] [place], [address], 04/17/2024 16:46:52 glycohemo globin, total, blood [address] (Lab), [address] [place], [address], 04/17/2024 16:46:53 microalbu min, urine [address] (Lab), [address] [place], [address], 04/17/2024 16:46:53 gamma-glu tamyl transfera se (ggt), serum [address] (Lab), [address] [place], [address], 06/05/2024 09:29:24 hepatitis panel (A+B+C), acute, serum [address] (Lab), [address] [place], [address], 06/05/2024 09:29:24 lipid panel, serum [address] (Lab), [address] [place], [address], 05/29/2024 08:59:19 CBC w/ auto diff [address] (Lab), [address] [place], [address], 05/29/2024 08:59:19 TSH, serum or plasma [address] (Lab), [address] [place], [address], 05/29/2024 08:59:19 CMP, serum or plasma [address] (Lab), [address] [place], [address], 05/29/2024 08:59:20 vitamin D, 25-hydrox y, total, serum [address] (Lab), [address] [place], [address], 05/29/2024 08:59:19 glycohemo globin, total, blood [address] (Lab), [address] [place], [address], 05/29/2024 08:59:19 microalbu min, urine [address] (Lab), [address] [place], [address], 05/29/2024 08:59:19 lipid panel, serum 2023 024 [facility] (Lab), [address] [place], [address], 11/23/2023 09:57:17 CBC w/ auto diff 2023 024 [facility] (Lab), [address] [place], [address], 11/23/2023 10:04:55 TSH, serum or plasma 2023 024 [facility] (Lab), [address] [place], [address], 11/23/2023 10:44:19 CMP, serum or plasma 2023 024 [facility] (Lab), [address] [place], [address], 11/23/2023 09:57:23 vitamin D, 25-hydrox y, total, serum [address] (Lab), [address] [place], [address], 02/27/2024 10:08:38 glycohemo globin, total, blood 2023 024 [facility] (Lab), [address] [place], [address], 11/23/2023 10:51:55 microalbu min, urine 2023 024 [facility] (Lab), [address] [place], [address], 11/23/2023 10:34:52 lipid panel, serum 2023 024 [facility] (Lab), [address] [place], [address], 08/13/2023 12:39:10 CBC w/ auto diff 2023 024 [facility] (Lab), [address] [place], [address], 08/13/2023 11:30:35 TSH, serum or plasma 2023 024 [facility] (Lab), [address] [place], [address], 08/13/2023 12:53:51 CMP, serum or plasma 2023 024 [facility] (Lab), [address] [place], [address], 08/13/2023 12:39:29 vitamin D, 25-hydrox y, total, serum 2023 024 [facility] (Lab), [address] [facility], [address], 02/14/2024 08:58:19 glycohemo globin, total, blood 2023 024 [facility] (Lab), [address] [place], [address], 08/13/2023 12:55:54 microalbu min, urine 2023 024 [facility] (Lab), [address] [place], [address], 08/13/2023 12:28:29 Referral gynecolog ist referral - Please call patient to schedule an appointme nt. Thank you. 2024 025 [email or web address] Hilda Pacheco MD, [address] [facility] [address], [place], [address], 07/22/2024 14:45:17 nephrolog ist referral - Please call patient to schedule an appointme nt. Thank you. 2024 025 [email or web address] Nasreen Baker MD, [address] [facility] [address], [place], [address], 07/22/2024 14:45:21 cardiolog ist referral - Please call patient to schedule an appointme nt. Thank you. 2024 025 [email or web address] Nicole Willoughby, [address] [facility] [address], [place], [address], 07/22/2024 14:45:19 podiatris t referral - Please call patient to schedule an appointme nt. Thank you. 2024 025 [email or web address] Chicho CUEVASM, [address], [address], [place], [address], 07/22/2024 14:45:18 gynecolog ist referral - Please call patient to schedule. 2023 024 [email or web address] Hilda Pacheco MD, [address] [facility] [address], [place], [address], 03/24/2024 08:55:39 nephrolog ist referral 2023 024 [email or web address] Nasreen Baker MD, [address] [facility] [address], [place], [address], 11/29/2023 17:35:14 pulmonolo gist referral 2023 024 [email or web address] Genoveva Abad, [address] [facility] [address], [place], [address], 11/29/2023 17:29:45 cardiolog ist referral 2023 024 [email or web address] Nicole Willoughby, [address] [facility] [address], [place], [address], 11/29/2023 17:31:24 podiatris t referral 2023 024 [email or web address] Chicho Ragland [facility], [address] [facility], [address], [place], [address], 11/29/2023 17:32:03 dermatolo gist referral 2023 024 [email or web address] Pillo Phan MD, [address] [facility], [facility] [address], [address], 11/29/2023 17:30:22 gynecolog ist referral 2023 024 [email or web address] Hilda Pacheco MD, [address] [facility] [address], [place], [address], 12/03/2023 12:46:43 nephrolog ist referral 2023 024 [email or web address] Nasreen Baker MD, [address] [facility] [address], [place], [address], 12/03/2023 12:46:44 pulmonolo gist referral 2023 024 [email or web address] Genoveva Abad, [address] [facility] [address], [place], [address], 10/03/2023 09:49:43 cardiolog ist referral 2023 024 melodie Willoughby, [address] [facility] [address], [place], [address], 10/03/2023 09:50:43 podiatris t referral 2023 024 [email or web address] Chicho Ragland DPM, [address] [facility], [address], [place], [address], 10/03/2023 09:49:12 dermatolo gist referral 2023 024 [email or web address] Pillo Phan MD, [address] [facility], [address], [place], [address], 10/03/2023 09:50:11 gynecolog ist referral 2023 024 [email or web address] 2 Nirali Courtney, [address] [facility], [address], [place], [address], Ph 633 [id number] 05/05/2024 08:19:36 pulmonolo gist referral 2023 024 EDE Nicholsshemar, [address] [facility] [address], [place], [address], 10/01/2023 18:02:15 cardiolog ist referral 2023 024 [email or web address] Nicole Willoughby, [address] [facility] [address], [place], [address], 10/08/2023 15:56:28 podiatris t referral 2023 024 melodie CUEVASM, [address], [address], [place], [address], 09/10/2023 16:17:44 dermatolo gist referral 2023 024 EDE Phan MD, [address] [facility], [address], [place], [address], 09/14/2023 14:48:03 Procedures upper endoscopy procedure (EGD) (PROC) - Please call patient to schedule an appointme nt. Thank you. 2024 025 [email or web address] Alejandro eduardo MD, [address], [address], [place], [address], 07/21/2024 08:57:58 upper endoscopy procedure (EGD) (PROC) - Please call patient to schedule. 2023 024 [email or web address] Alejandro eduardo MD, [address], [address], [place], [address], 03/13/2024 09:43:55 upper endoscopy procedure (EGD) (PROC) 2023 024 sabi eduardo MD, [address], [place], [address], 02/12/2024 16:18:31 upper endoscopy procedure (EGD) (PROC) 2023 024 sabi eduardo MD, [address], [place], [address], 02/12/2024 16:18:36 Surgeries None recorded. Imaging US, liver - Please call patient to schedule. 2023 024 [facility] ([facility]), [address], [place], [address], 01/08/2024 09:30:07 MAMMO, screening , digital, bilateral - Please call patient to schedule. Due on or around 4 [address] (Imaging), [address] [place] [address], [address], 03/04/2024 08:31:57 DEXA, axial skeleton 2023 024 [facility] ([facility] Sched[facility]), [address] [place], [address], 09/04/2023 10:14:39 MAMMO, screening , digital, bilateral [address] (Imaging), [address] [place] [address], [address], 11/29/2023 17:13:38 DEXA, axial skeleton 2023 024 [facility] ([facility] Sched[facility]), [address] [place], [address], 09/04/2023 10:26:54 MAMMO, screening , digital, bilateral [address] (Imaging), [address] [place] [address], [address], 11/29/2023 19:39:56 Medication Orders Ozempic 0.25 mg or 0.5 mg (2 mg/3 mL) subcutane ous pen injector 2024 025 [facility], [address] [facility], [place], [address], 04/17/2024 16:43:59 lisinopri l 2.5 mg tablet [email or web address] [facility], [address] [place], [address], 08/13/2023 14:54:22 Patient TargetsNo targets recorded. Patient Instructions Encounter Date Encounter Id Patient Instructions Last Modified By Organization Details Last Modified Time 08/08/2023 [id number] diabetic eye exam* [email or web address] Not avail able 02/07/2024 10:15:30 Personalized [facility] lt Plan and Screening Recommendations Advance Directives - Do you have one? Advance Directives - Do we have your advance directive on file in your health record? Primary Prevention/Interven tion (prevents or decreases the chance of common diseases from occurring) Smoking Risk: Alcohol Misuse Screening: Weight: Physical activity: Nutrition: Fall Risk (screened today): Vaccines Pneumococcal: Influenza: Chronic Disease Risks Stroke: Active diagnosis, Continue current treatment plan Heart Attack: Active diagnosis, Continue current treatment plan Clogging of the Arteries: Active diagnosis, Continue current treatment plan Diabetes: Active diagnosis, Continue current treatment plan Secondary Prevention/Interven tion (detects treatable diseases before they may cause symptoms, disability, or ) Breast Cancer Screening with mammogram: Cervical/Uterine/Ov aravind Cancer Screening: Osteoporosis Screening: Date Screening Last Performed: Colon Cancer Screening: Date Screening Last Performed: Eye Disease Screening: Your next exam in: Dementia Risk: Depression Screening: Active diagnosis, Continue current treatment plan Not available 08/07/2023 10:44:57 08/30/2023 [id number] diabetic eye exam* [email or web address] Not avail able 02/27/2024 10:08:26 11/29/2023 [id number] dementia rating scale-2* [email or web address] Not available 11/29/2023 12:22:53 alcohol misuse* [email or web address] 2 Not available 11/29/2023 12:22:51 depression screening* [email or web address] 2 Not available 11/29/2023 12:22:51 multi-dimensiona l health assessment questionnaire* [email or web address] 2 Not available 11/29/2023 12:22:56 Personalized [facility] lt Plan and Screening Recommendations Advance Directives - Do you have one? Yes Advance Directives - Do we have your advance directive on file in your health record? No, please bring in a copy at your earliest convenience Primary Prevention/Interven tion (prevents or decreases the chance of common diseases from occurring) Smoking Risk: Non Smoker Alcohol Misuse Screening: Negative Weight: Overweight try to lose 10% of your body weight Physical activity: Need more exercise/physical activity minimum of 20-30 minutes activity that causes mild breathlessness/day Nutrition: Average Refer to attached handout Heart-Healthy Diet: After Your Visit Fall Risk (screened today): Low Refer to attached handout Preventing Falls: After your Visit Vaccines Pneumococcal: No further needed Influenza: season up to date Chronic Disease Risks Stroke: Intermediate Risk Follow Heart Healthy Diet. Heart Attack: Intermediate Risk Active diagnosis, Continue current treatment plan Clogging of the Arteries: Intermediate Risk Follow Heart Healthy Diet. Diabetes: High Risk Active diagnosis, Continue current treatment plan Secondary Prevention/Interven tion (detects treatable diseases before they may cause symptoms, disability, or ) Breast Cancer Screening with mammogram: Ordered Cervical/Uterine/Ov aravind Cancer Screening: Recommended today, but you have declined Osteoporosis Screening: Recommended today, but you have declined Date Screening Last Performed: 2020 Colon Cancer Screening: Colonoscopy Eye Disease Screening: Recommended today Dementia Risk: Low I have no recommendations Depression Screening: Negative l [email or web address] Not available 11/29/2023 12:13:59 04/17/2024 [id number] diabetic eye exam* Not avail able 04/17/2024 16:48:00 Reason for Referral Animal Trapper Referral for Gy necologic examination Referring Physician: Kena Lim Internal Medicine, Encounter Date: 08/08/2023 Cab Supervisor Referral for Type 2 diabetes mellitus without complication Referring Physician: Kalani Godinez Medicine, Encounter Date: 08/08/2023 Dairy Farm Manager Referral for C hronic obstructive pulmonary disease Referring Physician: Kena Lim Internal Medicine, Encounter Date: 08/08/2023 Land Mobile Radio 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 Referring Physician: Kena Lim Internal [place], Encounter Date: 08/08/2023 Permit Specialist Referral for S kin lesion Referring Physician: Kalani Godinez, Encounter Date: 08/08/2023 Animal Trapper Referral for Gy necologic examination Referring Physician: Kalani Godinez Medicine, Encounter Date: 08/30/2023 Cab Supervisor Referral for Type 2 diabetes mellitus without complication Referring Physician: Kena Lim [facility], Encounter Date: 08/30/2023 Dairy Farm Manager Referral for C hronic obstructive pulmonary disease Referring Physician: Kena Lim [facility], Encounter Date: 08/30/2023 Land Mobile Radio 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 Thank you. Referring Physician: Kena Lim Internal Medicine, Encounter Date: 04/17/2024 Cab Supervisor Referral for Type 2 diabetes mellitus without complication Please call patient to schedule an appointment. Thank you. 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 Thank you. Referring Physician: Kena Lim, Internal Medicine, Encounter Date: 04/17/2024 Fashion Styling Intern Referral for Pr oteinuria Please call patient to schedule an appointment. Thank you. Referring Physician: Kena Lim, Internal Medicine, Encounter Date: 04/17/2024 Results Created Date Observation Date Name Description Value Unit Range Abnormal Flag Note LastModifiedBy Organization Detail LastModifiedTime 08/13/19 24 08/13/2023 CBC/C OMPLE TE BLD COUNT W/DIF F white blood cells 7.9 x10'3 /uL 4.2-10 .8 Not Available [facility] (Lab) [address] [place], [address], 08/13/2023 11:30:35 08/13/19 24 08/13/2023 CBC/C OMPLE TE BLD COUNT W/DIF F red blood cells 4.76 x10'6 /uL 3.80-5 .20 Not Available [facility] (Lab) [address] [place], [address], 08/13/2023 11:30:35 08/13/19 24 08/13/2023 CBC/C OMPLE TE BLD COUNT W/DIF F hemoglobin 14.1 g/dL 12.0-1 5.6 Not Available [facility] (Lab) [address] [place], [address], 08/13/2023 11:30:35 08/13/19 24 08/13/2023 CBC/C OMPLE TE BLD COUNT W/DIF F hematocrit 44.3 % 35.7-4 5.7 Not Available [facility] (Lab) [address] [place], [address], 08/13/2023 11:30:35 08/13/19 24 08/13/2023 CBC/C OMPLE TE BLD COUNT W/DIF F mean red cell volume 93.1 fL 82.0-9 9.0 Not Available [facility] (Lab) [address] [place], [address], 08/13/2023 11:30:35 08/13/19 24 08/13/2023 CBC/C OMPLE TE BLD COUNT W/DIF F mean red cell hemoglobin 29.6 pg 27.0-3 3.0 Not Available [facility] (Lab) [address] [place], [address], 08/13/2023 11:30:35 08/13/19 24 08/13/2023 CBC/C OMPLE TE BLD COUNT W/DIF F mean RBC HGB concentratio n 31.8 g/dL 31.0-3 6.0 Not Available [facility] (Lab) [address] [place], [address], 08/13/2023 11:30:35 08/13/19 24 08/13/2023 CBC/C OMPLE TE BLD COUNT W/DIF F red cell distribution width 14.6 % 11.8-1 5.5 Not Available [facility] (Lab) [address] [place], [address], 08/13/2023 11:30:35 08/13/19 24 08/13/2023 CBC/C OMPLE TE BLD COUNT W/DIF F platelets 292 x10'3 /uL 150-40 0 Not Available [facility] (Lab) [address] [place], [address], 08/13/2023 11:30:35 08/13/19 24 08/13/2023 CBC/C OMPLE TE BLD COUNT W/DIF F mean platelet volume 10.5 fL 9.0-12 .4 Not Available [facility] (Lab) [address] [facility] [place], [address], 08/13/2023 11:30:35 08/13/19 24 08/13/2023 CBC/C OMPLE TE BLD COUNT W/DIF F neutrophils 72.5 % 39.0-7 2.0 high Not Available [facility] (Lab) [address] [place], [address], 08/13/2023 11:30:35 08/13/19 24 08/13/2023 CBC/C OMPLE TE BLD COUNT W/DIF F lymphocytes 17.3 % 16.0-4 7.0 Not Available [facility] (Lab) [address] [place], [address], 08/13/2023 11:30:35 08/13/19 24 08/13/2023 CBC/C OMPLE TE BLD COUNT W/DIF F monocytes 5.7 % 5.0-12 .0 Not Available [facility] (Lab) [address] [place], [address], 08/13/2023 11:30:35 08/13/19 24 08/13/2023 CBC/C OMPLE TE BLD COUNT W/DIF F eosinophils 3.0 % 1.0-7. 0 Not Available [facility] (Lab) [address] [place], [address], 08/13/2023 11:30:35 08/13/19 24 08/13/2023 CBC/C OMPLE TE BLD COUNT W/DIF F basophils 1.0 % 0.0-2. 0 Not Available [facility] (Lab) [address] [place], [address], 08/13/2023 11:30:35 08/13/19 24 08/13/2023 CBC/C OMPLE TE BLD COUNT W/DIF F immature granulocytes 0.5 % 0.00-0 .50 Not Available [facility] (Lab) [address] [place], [address], 08/13/2023 11:30:35 08/13/19 24 08/13/2023 CBC/C OMPLE TE BLD COUNT W/DIF F neutrophils, absolute count 5.75 x10'3 /uL 1.5-8. 0 Not Available [facility] (Lab) [address] [place], [address], 08/13/2023 11:30:35 08/13/19 24 08/13/2023 CBC/C OMPLE TE BLD COUNT W/DIF F lymphocytes, absolute count 1.37 x10'3 /uL 1.07-3 .43 Not Available [facility] (Lab) [address] [place], [address], 08/13/2023 11:30:35 08/13/19 24 08/13/2023 CBC/C OMPLE TE BLD COUNT W/DIF F monocytes, absolute count 0.45 x10'3 /uL 0.29-0 .99 Not Available [facility] (Lab) [address] [place], [address], 08/13/2023 11:30:35 08/13/19 24 08/13/2023 CBC/C OMPLE TE BLD COUNT W/DIF F eosinophils, absolute count 0.24 x10'3 /uL 0.02-0 .53 Not Available [facility] (Lab) [address] [place], [address], 08/13/2023 11:30:35 08/13/19 24 08/13/2023 CBC/C OMPLE TE BLD COUNT W/DIF F basophils, absolute count 0.08 x10'3 /uL 0.01-0 .08 Not Available [facility] (Lab) [address] [place], [address], 08/13/2023 11:30:35 08/13/19 24 08/13/2023 CBC/C OMPLE TE BLD COUNT W/DIF F immature granulocytes ,absolute 0.04 x10'3 /uL 0.00-0 .05 Not Available [facility] (Lab) [address] [place], [address], 08/13/2023 11:30:35 08/13/19 24 08/13/2023 CBC/C OMPLE TE BLD COUNT W/DIF F nucleated red blood cells 0.0 % -0 Not Available [facility] (Lab) [address] [place], [address], 08/13/2023 11:30:35 08/13/19 24 08/13/2023 CBC/C OMPLE TE BLD COUNT W/DIF F NRBC# 0.00 x10'3 /uL Not Available [facility] (Lab) [address] [place], [address], 08/13/2023 11:30:35 08/13/19 24 08/13/2023 MICRO ALBUM IN RANDO M URINE microalbumin , urine 597.5 mg/L 0.0-16 .6 high Not Available [facility] (Lab) [address] [place], [address], 08/13/2023 12:28:29 08/13/19 24 08/13/2023 LIPID PANEL cholesterol 244 mg/dL 140-19 9 high NIH TEJ NSUS RECOM MENDA TION FOR CASIMIRO STERO L: ADULT CHILD LOW RISK: <200 <170 BORDE RLINE : <200- 239 ----- HIGH RISK: >240 >200 Not Available [facility] (Lab) [address] [place], [address], 08/13/2023 12:39:10 08/13/19 24 08/13/2023 LIPID PANEL triglyceride s 154 mg/dL 0-150 high NIH TEJ NSUS REPOR T RECOM MENDA TION FOR TRIGL YCERI LYNN: ADULT CHILD LOW RISK: <150 ----- BODER LINE: 150-1 99 ----- HIGH RISK: >200 ----- Not Available [facility] (Lab) [address] [place], [address], 08/13/2023 12:39:10 08/13/19 24 08/13/2023 LIPID PANEL HDL cholesterol 58 mg/dL 40- Not Available [facility] (Lab) [address] [place], [address], 08/13/2023 12:39:10 08/13/19 24 08/13/2023 LIPID PANEL LDL cholesterol, calculated 155 mg/dL 0-130 high NIH TEJ NSUS REPOR T RECOM MENDA TIONS FOR LDL: ADULT CHILD LOW RISK <130 <110 (OPTI MAL LDL) <100 ----- MARIAN RLINE : 130-1 59 ----- HIGH RISK: >160 >130 A TRIGL YCERI DE RESUL T >400 INVAL IDATE S THE CALCU LATIO N FOR LDL FRACT IONAT ION - THE LDL RESUL T WILL NOT BE REPOR SONIA. Not Available [facility] (Lab) [address] [place], [address], 08/13/2023 12:39:10 08/13/19 24 08/13/2023 COMPR EHENS DERRICK METAB OLIC PANEL sodium 136 mmol/ L 137-14 5 low Not Available [facility] (Lab) [address] [place], [address], 08/13/2023 12:39:29 08/13/19 24 08/13/2023 COMPR EHENS DERRICK METAB OLIC PANEL potassium 4.0 mmol/ L 3.5-5. 1 Not Available [facility] (Lab) [address] [place], [address], 08/13/2023 12:39:29 08/13/19 24 08/13/2023 COMPR EHENS DERRICK METAB OLIC PANEL chloride 105 mmol/ L 98-107 Not Available [facility] (Lab) [address] [place], [address], 08/13/2023 12:39:29 08/13/19 24 08/13/2023 COMPR EHENS DERRICK METAB OLIC PANEL carbon dioxide 26 mmol/ L 22-30 Not Available [facility] (Lab) [address] [place], [address], 08/13/2023 12:39:29 08/13/19 24 08/13/2023 COMPR EHENS DERRICK METAB OLIC PANEL anion gap 9.0 mmol/ L 14-22 low Not Available [facility] (Lab) [address] [place], [address], 08/13/2023 12:39:29 08/13/19 24 08/13/2023 COMPR EHENS DERRICK METAB OLIC PANEL glucose 140 mg/dL 70-99 high Not Available [facility] (Lab) [address] [place], [address], 08/13/2023 12:39:29 08/13/19 24 08/13/2023 COMPR EHENS DERRICK METAB OLIC PANEL BUN 27 mg/dL 8-19 high Not Available [facility] (Lab) [address] [place], [address], 08/13/2023 12:39:29 08/13/19 24 08/13/2023 COMPR EHENS DERRICK METAB OLIC PANEL creatinine 0.86 mg/dL 0.66-1 .25 Not Available [facility] (Lab) [address] [place], [address], 08/13/2023 12:39:29 08/13/19 24 08/13/2023 COMPR EHENS DERRICK METAB OLIC PANEL GFR >60 Refer ence Range : [place] ge GFR Healt hy Adult : >60 mL/mi n/1.7 3 m2 Chron ic Kidne y Disea se: 15-60 mL/mi n/1.7 3 m2 Kidne y Failu re: <15/m L/min /1.73 m2 www.n iddk. nih.g ov The MDRD study equat ion has not been valid ated in child ivania <18 years of age; pregn ant women ; the elder ly >85 years of age; or in some racia l or ethni c subgr oups, such as Hispa nics. Outsi de the valid ated violetta eters , estim ated GFR is less accur ate, requi ring clini estefani judgm ent on a case- by-ca se basis . Clini estefani inter preta tion for other races and ages must be made by the clini soy. The MDRD study equat ion has not been valid ated for the evalu ation of serum creat inine relat ed to nutri ruth ann l statu s or medic ation usage . For perso ns <18 years of age, a pedia tric GFR calcu lator is avail able on the [facility] websi te: https ://norah w.kid alonso.o rg/pr ofess ional s/kdo qi/gf r_cal culat or Not Available [facility] (Lab) [address] [place], [address], 08/13/2023 12:39:29 08/13/19 24 08/13/2023 COMPR EHENS DERRICK METAB OLIC PANEL alkaline phosphatase 76 U/L 38-126 Not Available [facility] (Lab) [address] [place], [address], 08/13/2023 12:39:29 08/13/19 24 08/13/2023 COMPR EHENS DERRICK METAB OLIC PANEL alanine aminotransfe rase 32 U/L 0-35 Not Available [facility] (Lab) [address] [place], [address], 08/13/2023 12:39:29 08/13/19 24 08/13/2023 COMPR EHENS DERRICK METAB OLIC PANEL aspartate aminotransfe rase 31 U/L 15-37 Not Available [facility] (Lab) [address] [place], [address], 08/13/2023 12:39:29 08/13/19 24 08/13/2023 COMPR EHENS DERRICK METAB OLIC PANEL bilirubin, total 0.60 mg/dL 0.20-1 .30 Not Available [facility] (Lab) [address] [place], [address], 08/13/2023 12:39:29 08/13/19 24 08/13/2023 COMPR EHENS DERRICK METAB OLIC PANEL calcium 9.2 mg/dL 8.4-10 .2 Not Available [facility] (Lab) [address] [place], [address], 08/13/2023 12:39:29 08/13/19 24 08/13/2023 COMPR EHENS DERRICK METAB OLIC PANEL total protein 8.0 g/dL 6.3-8. 2 Not Available [facility] (Lab) [address] [place], [address], 08/13/2023 12:39:29 08/13/19 24 08/13/2023 COMPR EHENS DERRICK METAB OLIC PANEL albumin 4.4 g/dL 3.0-4. 4 Not Available [facility] (Lab) [address] [place], [address], 08/13/2023 12:39:29 08/13/19 24 08/13/2023 COMPR EHENS DERRICK METAB OLIC PANEL globulin 3.6 g/dL 2.6-4. 2 Not Available [facility] (Lab) [address] [place], [address], 08/13/2023 12:39:29 08/13/19 24 08/13/2023 COMPR EHENS DERRICK METAB OLIC PANEL A/G ratio 1.2 ratio 1.0-2. 0 Not Available [facility] (Lab) [address] [place], [address], 08/13/2023 12:39:29 08/13/1908/13/2023 TSH W/REF ЮЛИЯ FT4 TSH with reflex free T4 1.160 uIU/m L 0.465- 4.680 Not Available [facility] (Lab) [address] [place], [address], 08/13/2023 12:53:51 08/13/19 24 08/13/2023 HEMOG LOBIN A1C HA1C 9.4 % 4.0-6. 0 high Diabe alejandro Scree mamadou Crite isela: <5.7% Consi stent with absen ce of diabe alejandro 5.7-6 .4% Consi stent with incre ased risk for diabe alejandro (pred iabet es) >OR=6 .5% Consi stent with diabe alejandro REFER ENCE: Diabe alejandro Care 2016, 39(Lord ppl.1 ):s13 -s22 Not Available [facility] (Lab) [address] [place], [address], 08/13/2023 12:55:54 11/23/19 24 11/23/2023 LIPID PANEL cholesterol 158 mg/dL 140-19 9 NIH TEJ NSUS RECOM MENDA TION FOR CASIMIRO STERO L: ADULT CHILD LOW RISK: <200 <170 BORDE RLINE : <200- 239 ----- HIGH RISK: >240 >200 Not Available [facility] (Lab) [address] [place], [address], 11/23/2023 09:57:17 11/23/19 24 11/23/2023 LIPID PANEL triglyceride s 102 mg/dL 0-150 NIH TEJ NSUS REPOR T RECOM MENDA TION FOR TRIGL YCERI LYNN: ADULT CHILD LOW RISK: <150 ----- BODER LINE: 150-1 99 ----- HIGH RISK: >200 ----- Not Available [facility] (Lab) [address] [place], [address], 11/23/2023 09:57:17 11/23/1911/23/2023 LIPID PANEL HDL cholesterol 60 mg/dL 40- Not Available [facility] (Lab) [address] [place], [address], 11/23/2023 09:57:17 11/23/1911/23/2023 LIPID PANEL LDL cholesterol, calculated 78 mg/dL 0-130 NIH TEJ NSUS REPOR T RECOM MENDA TIONS FOR LDL: ADULT CHILD LOW RISK <130 <110 (OPTI MAL LDL) <100 ----- BORDE RLINE : 130-1 59 ----- HIGH RISK: >160 >130 A TRIGL YCERI DE RESUL T >400 INVAL IDATE S THE CALCU LATIO N FOR LDL FRACT IONAT ION - THE LDL RESUL T WILL NOT BE REPOR SONIA. Not Available [facility] (Lab) [address] [place], [address], 11/23/2023 09:57:17 11/23/19 24 11/23/2023 COMPR EHENS DERRICK METAB OLIC PANEL sodium 140 mmol/ L 137-14 5 Not Available [facility] (Lab) [address] [place], [address], 11/23/2023 09:57:22 11/23/19 24 11/23/2023 COMPR EHENS DERRICK METAB OLIC PANEL potassium 4.8 mmol/ L 3.5-5. 1 Not Available [facility] (Lab) [address] [place], [address], 11/23/2023 09:57:22 11/23/1911/23/2023 COMPR EHENS DERRICK METAB OLIC PANEL chloride 104 mmol/ L 98-107 Not Available [facility] (Lab) [address] [place], [address], 11/23/2023 09:57:22 11/23/1911/23/2023 COMPR EHENS DERRICK METAB OLIC PANEL carbon dioxide 28 mmol/ L 22-30 Not Available [facility] (Lab) [address] [place], [address], 11/23/2023 09:57:22 11/23/19 24 11/23/2023 COMPR EHENS DERRICK METAB OLIC PANEL anion gap 12.8 mmol/ L 14-22 low Not Available [facility] (Lab) [address] [place], [address], 11/23/2023 09:57:22 11/23/19 24 11/23/2023 COMPR EHENS DERRICK METAB OLIC PANEL glucose 140 mg/dL 70-99 high Not Available [facility] (Lab) [address] [place], [address], 11/23/2023 09:57:22 11/23/19 24 11/23/2023 COMPR EHENS DERRICK METAB OLIC PANEL BUN 22 mg/dL 8-19 high Not Available [facility] (Lab) [address] [place], [address], 11/23/2023 09:57:22 11/23/19 24 11/23/2023 COMPR EHENS DERRICK METAB OLIC PANEL creatinine 0.92 mg/dL 0.66-1 .25 Not Available [facility] (Lab) [address] [place], [address], 11/23/2023 09:57:22 11/23/1911/23/2023 COMPR EHENS DERRICK METAB OLIC PANEL GFR >60 Refer ence Range : [place] ge GFR Healt hy Adult : >60 mL/mi n/1.7 3 m2 Chron ic Kidne y Disea se: 15-60 mL/mi n/1.7 3 m2 Kidne y Failu re: <15/m L/min /1.73 m2 www.n iddk. nih.g ov The MDRD study equat ion has not been valid ated in child ivania <18 years of age; pregn ant women ; the elder ly >85 years of age; or in some racia l or ethni c subgr oups, such as Hispa nics. Outsi de the valid ated violetta eters , estim ated GFR is less accur ate, requi ring clini estefani judgm ent on a case- by-ca se basis . Clini estefani inter preta tion for other races and ages must be made by the clini soy. The MDRD study equat ion has not been valid ated for the evalu ation of serum creat inine relat ed to nutri ruth ann l statu s or medic ation usage . For perso ns <18 years of age, a pedia tric GFR calcu lator is avail able on the [facility] websi te: https ://onrah w.breana gupta.o robert/pr ofess ional s/kdo qi/gf r_cal culat or Not Available [facility] (Lab) [address] [place], [address], 11/23/2023 09:57:22 11/23/19 24 11/23/2023 COMPR EHENS DERRICK METAB OLIC PANEL alkaline phosphatase 78 U/L 38-126 Not Available [facility] (Lab) [address] [place], [address], 11/23/2023 09:57:22 11/23/19 24 11/23/2023 COMPR EHENS DERRICK METAB OLIC PANEL alanine aminotransfe rase 43 U/L 0-35 high Not Available [facility] (Lab) [address] [place], [address], 11/23/2023 09:57:22 11/23/19 24 11/23/2023 COMPR EHENS DERRICK METAB OLIC PANEL aspartate aminotransfe rase 41 U/L 15-37 high Not Available [facility] (Lab) [address] [place], [address], 11/23/2023 09:57:22 11/23/19 24 11/23/2023 COMPR EHENS DERRICK METAB OLIC PANEL bilirubin, total 0.70 mg/dL 0.20-1 .30 Not Available [facility] (Lab) [address] [place], [address], 11/23/2023 09:57:22 11/23/19 24 11/23/2023 COMPR EHENS DERRICK METAB OLIC PANEL calcium 10.0 mg/dL 8.4-10 .2 Not Available [facility] (Lab) [address] [place], [address], 11/23/2023 09:57:22 11/23/19 24 11/23/2023 COMPR EHENS DERRICK METAB OLIC PANEL total protein 7.8 g/dL 6.3-8. 2 Not Available [facility] (Lab) [address] [place], [address], 11/23/2023 09:57:22 11/23/19 24 11/23/2023 COMPR EHENS DERRICK METAB OLIC PANEL albumin 4.4 g/dL 3.0-4. 4 Not Available [facility] (Lab) [address] [place], [address], 11/23/2023 09:57:22 11/23/19 24 11/23/2023 COMPR EHENS DERRICK METAB OLIC PANEL globulin 3.4 g/dL 2.6-4. 2 Not Available [facility] (Lab) [address] [place], [address], 11/23/2023 09:57:22 11/23/19 24 11/23/2023 COMPR EHENS DERRICK METAB OLIC PANEL A/G ratio 1.3 ratio 1.0-2. 0 Not Available [facility] (Lab) [address] [place], [address], 11/23/2023 09:57:22 11/23/19 24 11/23/2023 CBC/C OMPLE TE BLD COUNT W/DIF F white blood cells 7.9 x10'3 /uL 4.2-10 .8 Not Available [facility] (Lab) [address] [place], [address], 11/23/2023 10:04:55 11/23/1911/23/2023 CBC/C OMPLE TE BLD COUNT W/DIF F red blood cells 4.86 x10'6 /uL 3.80-5 .20 Not Available [facility] (Lab) [address] [facility] [place], [address], 11/23/2023 10:04:55 11/23/1911/23/2023 CBC/C OMPLE TE BLD COUNT W/DIF F hemoglobin 14.2 g/dL 12.0-1 5.6 Not Available [facility] (Lab) [address] [place], [address], 11/23/2023 10:04:55 11/23/1911/23/2023 CBC/C OMPLE TE BLD COUNT W/DIF F hematocrit 43.9 % 35.7-4 5.7 Not Available [facility] (Lab) [address] [place], [address], 11/23/2023 10:04:55 11/23/19 24 11/23/2023 CBC/C OMPLE TE BLD COUNT W/DIF F mean red cell volume 90.3 fL 82.0-9 9.0 Not Available [facility] (Lab) [address] [place], [address], 11/23/2023 10:04:55 11/23/19 24 11/23/2023 CBC/C OMPLE TE BLD COUNT W/DIF F mean red cell hemoglobin 29.2 pg 27.0-3 3.0 Not Available [facility] (Lab) [address] [place], [address], 11/23/2023 10:04:55 11/23/19 24 11/23/2023 CBC/C OMPLE TE BLD COUNT W/DIF F mean RBC HGB concentratio n 32.3 g/dL 31.0-3 6.0 Not Available [facility] (Lab) [address] [place], [address], 11/23/2023 10:04:55 11/23/1911/23/2023 CBC/C OMPLE TE BLD COUNT W/DIF F red cell distribution width 14.7 % 11.8-1 5.5 Not Available [facility] (Lab) [address] [place], [address], 11/23/2023 10:04:55 11/23/1911/23/2023 CBC/C OMPLE TE BLD COUNT W/DIF F platelets 279 x10'3 /uL 150-40 0 Not Available [facility] (Lab) [address] [place], [address], 11/23/2023 10:04:55 11/23/1911/23/2023 CBC/C OMPLE TE BLD COUNT W/DIF F mean platelet volume 10.3 fL 9.0-12 .4 Not Available [facility] (Lab) [address] [place], [address], 11/23/2023 10:04:55 11/23/1911/23/2023 CBC/C OMPLE TE BLD COUNT W/DIF F neutrophils 72.4 % 39.0-7 2.0 high Not Available [facility] (Lab) [address] [place], [address], 11/23/2023 10:04:55 11/23/1911/23/2023 CBC/C OMPLE TE BLD COUNT W/DIF F lymphocytes 16.3 % 16.0-4 7.0 Not Available [facility] (Lab) [address] [place], [address], 11/23/2023 10:04:55 11/23/1911/23/2023 CBC/C OMPLE TE BLD COUNT W/DIF F monocytes 6.5 % 5.0-12 .0 Not Available [facility] (Lab) [address] [place], [address], 11/23/2023 10:04:55 11/23/1911/23/2023 CBC/C OMPLE TE BLD COUNT W/DIF F eosinophils 3.2 % 1.0-7. 0 Not Available [facility] (Lab) [address] [place], [address], 11/23/2023 10:04:55 11/23/1911/23/2023 CBC/C OMPLE TE BLD COUNT W/DIF F basophils 1.3 % 0.0-2. 0 Not Available [facility] (Lab) [address] [place], [address], 11/23/2023 10:04:55 11/23/1911/23/2023 CBC/C OMPLE TE BLD COUNT W/DIF F immature granulocytes 0.3 % 0.00-0 .50 Not Available [facility] (Lab) [address] [place], [address], 11/23/2023 10:04:55 11/23/1911/23/2023 CBC/C OMPLE TE BLD COUNT W/DIF F neutrophils, absolute count 5.73 x10'3 /uL 1.5-8. 0 Not Available [facility] (Lab) [address] [place], [address], 11/23/2023 10:04:55 11/23/1911/23/2023 CBC/C OMPLE TE BLD COUNT W/DIF F lymphocytes, absolute count 1.29 x10'3 /uL 1.07-3 .43 Not Available [facility] (Lab) [address] [place], [address], 11/23/2023 10:04:55 11/23/1911/2211/23/2023 CBC/C OMPLE TE BLD COUNT W/DIF F monocytes, absolute count 0.51 x10'3 /uL 0.29-0 .99 Not Available [facility] (Lab) [address] [place], [address], 11/23/2023 10:04:55 11/23/19 24 11/23/2023 CBC/C OMPLE TE BLD COUNT W/DIF F eosinophils, absolute count 0.25 x10'3 /uL 0.02-0 .53 Not Available [facility] (Lab) [address] [place], [address], 11/23/2023 10:04:55 11/23/19 24 11/23/2023 CBC/C OMPLE TE BLD COUNT W/DIF F basophils, absolute count 0.10 x10'3 /uL 0.01-0 .08 high Not Available [facility] (Lab) [address] [place], [address], 11/23/2023 10:04:55 11/23/19 24 11/23/2023 CBC/C OMPLE TE BLD COUNT W/DIF F immature granulocytes ,absolute 0.02 x10'3 /uL 0.00-0 .05 Not Available [facility] (Lab) [address] [place], [address], 11/23/2023 10:04:55 11/23/19 24 11/23/2023 CBC/C OMPLE TE BLD COUNT W/DIF F nucleated red blood cells 0.0 % -0 Not Available [facility] (Lab) [address] [place], [address], 11/23/2023 10:04:55 11/23/19 24 11/23/2023 CBC/C OMPLE TE BLD COUNT W/DIF F NRBC# 0.00 x10'3 /uL Not Available [facility] (Lab) [address] [place], [address], 11/23/2023 10:04:55 11/23/19 24 11/23/2023 VITAM IN D 25-HY DROXY [id number] 32.0 NG/mL 30-100 Vitam in D Statu s: Defic ient: <20 ng/mL Insuf ficie nt: 20-29 ng/mL Suffi cient : 30-10 0 ng/mL Not Available [facility] (Lab) [address] [place], [address], 11/23/2023 10:28:12 11/23/19 24 11/23/2023 MICRO ALBUM IN RANDO M URINE microalbumin , urine 202.4 mg/L 0.0-16 .6 high Not Available [facility] (Lab) [address] [place], [address], 11/23/2023 10:47:52 11/23/1911/23/2023 TSH W/REF ЮЛИЯ FT4 TSH with reflex free T4 1.590 uIU/m L 0.465- 4.680 Not Available [facility] (Lab) [address] [place], [address], 11/23/2023 10:44:19 11/23/19 24 11/23/2023 HEMOG LOBIN A1C HA1C 6.8 % 4.0-6. 0 high Diabe alejandro Scree mamadou Crite isela: <5.7% Consi stent with absen ce of diabe alejandro 5.7-6 .4% Consi stent with incre ased risk for diabe alejandro (pred iabet es) >OR=6 .5% Consi stent with diabe alejandro REFER ENCE: Diabe alejandro Care 2016, 39(Lord ppl.1 ):s13 -s22 Not Available [facility] (Lab) [address] [place], [address], 11/23/2023 10:51:55 07/11/19 24 07/11/2023 pulmo nary funct ion test* No observ ation record ed. [email or web address] [facility] [address] [facility] [address], [place], [address], 08/02/2023 15:19:16 07/18/19 24 07/11/2023 six minut e walk test* No observ ation record ed. [email or web address] [facility] [address], [place], [address], 08/02/2023 15:20:16 09/04/19 24 DEXA, axial skele ton [facility] [address] [facility] [place] [address] Aurelio t Name: CIRA UMANZOR E Access ion #: [id number] Sex: F : 1955 2 Locati on: RAD Attend ing Physic hiral: YAYA KIM [facility] Physic hiral: YAYA KIM Exam Date: 024 8:06 AM Exam Name: XR DEXA AXIAL/ HIP/PE LVIS/S PINE Admitt ing Diagno sis(es ): RADIOL OGY REPORT - FINAL EXAM: XR DEXA AXIAL/ HIP/PE LVIS/S PINE HISTOR Y: screen ing for osteop orosis 68-yea r-old male with osteop orosis screen ing. COMPAR MIKEY: DEXA scan dated 2014 TECHNI QUE: Dual energy x-ray of absorp tion examin ation of the bilate ral hips and lumbar spine was perfor med in AP projec tion. FINDIN GS: Lumbar Spine (L1-L4 ): The mean bone minera l densit y is 0.982 g/cm2 hydrox yapati te, correl ating with a T-scor e of -1.7. Bilate ral hips: The mean bone minera l densit y is 0.863 g/cm2 calciu m hydrox yapati te, correl ating with a T-scor e of -1.1. Page 1 of 2 [facility] Patiandrew t Name: CIRA UMANZOR E Access ion #: [id number] Sex: F : 1955 [facility] #: [id number] Exam Date: 8:06 AM Exam Name: XR DEXA AXIAL/ HIP/PE LVIS/S PINE Admitt ing Diagno sis(es ): IMPRES SOTERO: 1. The patien t's lumbar spine T-scor e is consis tent with osteop enia. 2. The patien t's bilate ral hip T-scor e is consis tent with osteop enia. Accord ing to the [employer]i zation , T-scor e values greate r than -1.0 are normal , values betwee n -1.0 and -2.5 are catego rized as osteop enia, T-scor e of -2.5 or more are catego rized as osteop orosis . Create d and electr onical ly signed by: Dez espinal MD Signed Date: 9:11 AM (CT) Dictat ed by: Dez espinal MD DD: 9:11 AM (CT) DT: 9:11 AM (CT) Page 2 of 2 [facility] (Imaging) [address] [place], [address], 09/04/2023 10:14:39 09/04/19 24 09/04/2023 DEXA, axial skele ton No observ ation record ed. [facility] [address] [place], [address], 09/04/2023 10:26:54 10/12/19 24 10/12/2023 imagi ng/di agnos tic resul t No observ ation record ed. [facility] [address] [place], [address], 10/12/2023 10:31:05 01/08/20 24 01/08/2024 US, abdom en, limit ed [facility] [address] [place] [address] Patien t Name: CIRA UMANZOR Access ion #: [id number] Sex: F : 1955 9 Dictat ed By: Edmundo Rodriguez Attend ing Physic hiral: YAYA KIM Orderi ng Physic hiral: YESY YAYA PARRA Exam Date: 2023 07:41 AM Exam Name: US ABDOME N SINGLE ORGAN Admitt ing Diagno sis(es ): INDICA TION: increa sed liver functi on TECHNI QUE: Multip le real-t giovanni sonogr aphic images of the abdome n were obtain ed. COMPAR MIKEY: US ABDOME N RETROP ER on DOS: 4 FINDIN GS: The liver is hetero genous in echoge nicity . The liver measur es 18cm. No intrah epatic biliar y ductal dilata tion is noted. The gallbl adder wall measur es 0.2 cm and is unrema rkable . gallst ones are seen. The common duct measur es 0.4 cm and is unrema rkable . No perich olecys tic fluid is noted. The right kidney measur es 13cm. No hydron ephros is. 3cm right lower pole renal cyst. The pancre as is not well visual ized due to obscur ation from bowel gas. The visual ized portio ns of the IVC and aorta are grossl y unrema rkable . IMPRES SOTERO: Gallst ones. Fatty liver. Electr onical ly Signed by: Edmundo Rodriguez at 2023 08:25: 50 AM Page 1 INTERFACE [facility] (Imaging) [address] [place], [address], 01/08/2024 09:27:59 01/08/2001/08/2024 US, liver No observ ation record ed. [facility] [address] [facility], [place], [address], 01/08/2024 09:30:07 01/15/20 24 01/15/2024 imagi ng/di agnos tic resul t No observ ation record ed. [facility] [address], [place], [address], 01/15/2024 12:11:05 02/12/20 24 02/12/2024 scree mamadou breas t padmini, bilat [facility] [address], [place] [address] Patien t Name: CIRA UMANZOR ion #: [id number] Sex: F : 1955 2 Dictat ed By: Vlad floyd Attend ing Physic hiral: YAYA KIM Ordercatrachito bear Physic hiral: YAYA KIM Exam Date: 2023 08:24 AM Exam Name: MG SCRN BREAST PADMINI BILAT Admitt ing Diagno sis(es ): PROCED URE: SCREEN ING MAMMOG PURVI WITH TOMOSY NTHESI S REASON FOR EXAM: screen ing mammog purvi. No person al histor y of breast cancer or prior breast interv ention . No family histor y of breast cancer . COMPAR MIKEY: MG SCRN BREAST PADMINI BILAT on DOS: , DIGITA L MAMM, BILAT SCREEN ING on DOS: 5, DIGITA L MAMM, BILAT SCREEN ING on DOS: 1 TECHNI QUE: Bilate ral CC and MLO views obtain ed. Images were obtain ed using a Digita l Tomosy nthesi s Unit. Standa rd 2D and 3D Tomosy nthesi s images were review ed. This examin ation was analyz ed using Lunit Insigh t DBT/MM G, an AI softwa re develo ped to enhanc e the effect ivenes s of breast cancer screen ing with mammog mirlande. FINDIN GS: BREAST COMPOS ITION: B - There are scatte red areas of fibrog landul ar densit y. In the right breast , no asymme trical parenc hymal patter n, derek ectura l distor tion, pleomo rphic microc alcifi cation s or masses . In the left breast , no asymme trical parenc hymal patter n, derek ectura l distor tion, pleomo rphic microc alcifi cation s or masses . IMPRES SOTERO: No mammog raphic eviden ce of malign kiak. RECOMM ENDATI ON: Recomm end annual mammog purvi. Page 1 [facility] [address] [facility] [place] [address] Patien t Name: CIRA UMANZOR Access ion #: [id number] Sex: F : 1955 2 Dictat ed By: Vlad floyd Attend ing Physic hiral: YESY MCALLISTER Ordercatrachito bear Physic hiral: YAYA KIM Exam Date: 2023 08:24 AM Exam Name: MG SCRN BREAST PADMINI BILAT Admitt ing Diagno sis(es ): ASSESS MENT: BIRADS : 1 - Negati ve Electr onical ly Signed by: Vlad floyd at 2023 07:12: 05 AM Page 2 INTERFACE [facility] (Imaging) [address] [place], [address], 02/12/2024 10:14:17 02/12/20 24 02/12/2024 imagi ng/di agnos tic resul t No observ ation record ed. EDE [facility] [address] [place], [address], 02/12/2024 10:16:36 Result Notes Documentation Provider Name and Address Organization Details Recorded Time Dexa, Axial Skeleton : [facility] [address] [place] [address] Patient Name: CIRA UMANZOR Sex: F : 1955 Location: [facility] Attending Physician: KENA LIM Ordering Physician: KENA LIM Exam Date: 09/04/2023 8:06 AM Exam Name: XR DEXA AXIAL/HIP/PELVIS/SPINE Admitting Diagnosis(es): RADIOLOGY REPORT - FINAL EXAM: XR DEXA AXIAL/HIP/PELVIS/SPINE HISTORY: screening for osteoporosis 68-year-old male with osteoporosis screening. COMPARISON: DEXA scan dated 04/22/2014 TECHNIQUE: Dual energy x-ray of absorption examination of the bilateral hips and lumbar spine was performed in AP projection. FINDINGS: Lumbar Spine (L1-L4): The mean bone mineral density is 0.982 g/cm2 hydroxyapatite, correlating with a T-score of -1.7. Bilateral hips: The mean bone mineral density is 0.863 g/cm2 calcium hydroxyapatite, correlating with a T-score of -1.1. Page 1 of 2 [facility] Patient Name: CIRA UMANZOR Sex: F : 1955 Exam Date: 09/04/2023 8:06 AM Exam Name: XR DEXA AXIAL/HIP/PELVIS/SPINE Admitting Diagnosis(es): IMPRESSION: 1. The patient's lumbar spine T-score is consistent with osteopenia. 2. The patient's bilateral hip T-score is consistent with osteopenia. According to the World Health Organization, T-score values greater than -1.0 are normal, values between -1.0 and -2.5 are categorized as osteopenia, T-score of -2.5 or more are categorized as osteoporosis. Created and electronically signed by: Dez Robert MD Signed Date: 09/04/2023 9:11 AM (CT) Dictated by: Dez Robert MD (CT) (CT) Page 2 of 2 Not Available [facility] 09/04/2023 10:14:39 Problems Name Problem SNOMED Code Status Onset Date Resolution Date Notes Provider Name and Address Organization Details Recorded Time Tobacco user 810738435 Active Not Available [facility] 3 01:02:07 Albuminuri a 204134450 Active Not Available [facility] 3 01:02:07 Osteopenia 515067106 Active Not Available [facility] 3 01:02:07 Cough 84361117 Active Not Available [facility] 3 01:02:08 Hyperlipid emia 49779304 Active Not Available [facility] 3 01:02:08 Polyp of colon 02828857 Active Not Available [facility] 3 01:02:08 Diabetes mellitus 58377052 Active Not Available [facility] 3 01:02:08 Varicose veins of lower extremity 47434213 Active 2017 Not Available [facility] 3 01:02:08 Well controlled type 2 diabetes mellitus 035402617 Active 2021 Not Available [facility] 3 01:02:08 Dyslipidem ia 760452907 Active 2021 Not Available [facility] 3 01:02:08 Uncontroll ed type 2 diabetes mellitus 426498178 Active 2021 Not Available [facility] 3 01:02:08 Gastroesop hageal reflux disease without esophagiti s 169107361 Active 2022 Lawanda Tipton MD [address], [address], [place], [address] , [facility] [employer] [facility] 3 11:35:12 Allergy to dust 601319558 Active 2022 Lawanda Tipton MD [address], [address], [place], [address] , [facility] [employer] [facility] [employer] [facility] 3 11:44:47 Pain in left foot 9267757588098 07 Active 2022 Lawanda Tipton MD [address], [address], [place], [address] , [facility] [employer] [facility] 3 13:06:53 Obesity 538388800 Active 2022 Nirali whitmore [facility] [employer] [facility] 3 15:13:20 Osteoporos is 86219207 Active 2022 Nirali whitmore [facility] [employer] [facility] 3 15:13:29 Osteoarthr itis 931103143 Active 2022 Chicho Ragland DPM [address], [address], [place], [address] , [email or web address] 3 15:36:55 Chronic cough 10556542 Active 2022 Lawanda Tipton MD [address], [address], [place], [address] , [email or web address] 3 10:40:47 Vitamin D deficiency 04674851 Active 2022 Lawanda Tipton MD [address], [address], [place], [address] , [employer] 3 10:50:42 Weight gain 1090339 Active 2022 Lawanda Tipton MD [address], [address], [place], [address] , [email or web address] 3 10:51:14 Multiple nodules of lung 785038008 Active 2022 Lawanda Tipton MD [address], [address], [place], [address] , [employer] 3 07:54:26 Essential hypertensi on 10113874 Active 2023 Lawanda Tipton MD [address], [address], [place], [address] , [email or web address] 4 09:56:42 Dyspnea on exertion 29805627 Active 2023 Lawanda Tipton MD [address], [address], [place], [address] , [email or web address] [facility] 4 09:59:02 Type 2 diabetes mellitus without complicati on 910735577 Active 2023 Kena gale MD [address], [address], [place], [address] , [employer] [place] [employer] [facility] 4 15:47:55 Chronic obstructiv e pulmonary disease 60259950 Active 2023 Kena gale MD [address], [address], [place], [address] , [facility] 4 16:16:36 Pulmonary artery aneurysm 848521704 Active 2023 Kena gale MD [address], [address], [place], [address] , [facility] 4 16:17:49 Skin lesion 92819918 Active 2023 Kena gale MD [address], [place], [address] , [facility] 4 16:33:11 Proteinuri a 41637615 Active 2023 Marquita Choi MA null, [facility] 4 14:27:12 Increased liver function 29149535 Active 2023 Kena gale MD [address], [facility] [address], [place], [address] , [facility] 4 12:22:27 Persistent cough 347639083 Active 2023 Molina Bates CMA null, [place] - [facility] 4 11:03:18 Problem Notes None recorded. Procedures Surgical History Date Name Laterality Status Provider Name and Address Organization Details Recorded Time 11/29/19 Medicare Wellness CPT Code, subsequent completed Edgardo Yu LPN [facility] 11/29/2023 08:54:08 08/08/19 Medicare Wellness CPT Code, Initial completed Edgardo Yu LPN [facility] 08/07/2023 10:44:58 01/23/20 19 colonoscopy completed Not Available [facility] 04/13/19 00:48:09 lumpectomy of breast completed Not Available [facility] 04/12/2022 00:48:09 tonsillectomy completed Not Available [facility] 04/12/2022 00:48:09 Imaging Results None recorded. Procedure Notes None recorded. Medical Equipment None Reported. Allergies Allergen ID Allergen Name Allergen Category Reaction Reaction Severity Criticality Documentation Date Start Date Code Code System Note Provider Name and Address Organization Details Recorded Time 2092 simvastat in medicatio n myalgias (muscle pain) Not available Not available 04/12/2022 53612 RxNorm Not Available [facility] 3 01:21:13 2093 Product containin g penicilli n (product) medicatio n rash Not available Not available 04/12/2022 46348 8001 SNOMED facia l swell ing Not Available [facility] 3 01:21:13 Medications Name Sig Start Date Stop Date Status Note LastModified by Organization Details LastModified Time metformin 500 mg tablet Take 1 tablet by mouth twice daily 03/24 completed Not Available Not Available Not Available atorvasta tin 80 mg tablet TAKE 1 TABLET EVERY DAY 2024 active Not Available Not Available Not Avai lable clindamyc in HCl 300 mg capsule Take 1 capsule 3 times a day by oral route for 7 days. active Take OTC Acidophi llus bid for next 2 weeks. Not Available Not Available Not Available azithromy marisabel 250 mg tablet Take 2 TABLETS by oral route for 1 Day. Than 1 Tablet for 4 Days 04/17 completed Not Available Not Available Not Available benzonata te 200 mg capsule TAKE 1 CAPSULE BY MOUTH THREE TIMES DAILY 08/07 completed Not Available Not Available Not Available valacyclo vir 1 gram tablet TAKE 2 TABLETS BY MOUTH EVERY 12 HOURS 04/10 completed Not Available Not Available Not Available Keflex 500 mg capsule Take 1 capsule every 12 hours by oral route for 10 days. active Not Available Not Available No t Available lisinopri l 20 mg tablet TAKE 1 TABLET EVERY DAY 04/16 completed Not Available Not Available Not Available prednison e 20 mg tablet Take 2 tablets every day by oral route for 5 days. 01/11 completed Not Available Not Available Not Available Accu-Chek Softclix Lancets TEST BLOOD SUGAR 2 TIMES DAILY WITH MEALS. active Not Available Not Available No t Available sulfameth oxazole 800 mg-trimet hoprim 160 mg tablet TAKE 1 TABLET BY MOUTH EVERY 12 HOURS 01/11 completed Not Available Not Available Not Available omeprazol e 40 mg capsule,d elayed release Take 1 capsule every day by oral route. active Not Available Not Available No t Available glimepiri de 2 mg tablet 2 po bid active Not Available Not Available Not Available glimepiri de 1 mg tablet TAKE 2 TABLETS BY MOUTH TWICE DAILY BEFORE MEAL(S) FOR 30 DAYS active Not Available Not Available No t Available losartan 100 mg-hydroc hlorothia zide 25 mg tablet Take 1 tablet every day by oral route. 08/07 completed patient not taking-- too high of a dose?? Not Available Not Available Not Available amlodipin e 10 mg tablet Take 1 tablet every day by oral route. 08/07 completed Not Available Not Available Not Available pantopraz ole 40 mg tablet,de layed release Take 1 tablet(s ) every day by oral route. active Not Available Not Available No t Available simvastat in 20 mg tablet Take 1 tablet every day by oral route. 04/13 completed Not Available Not Available Not Available gabapenti n 300 mg capsule Take 1 capsule every day by oral route at bedtime. active Not Available Not Available No t Available diclofena c sodium 75 mg tablet,de layed release TAKE 1 TABLET BY MOUTH TWICE DAILY NEEDED 12/10 completed Not Available Not Available Not Available lisinopri l 5 mg tablet Take 1 tablet every day by oral route. active Not Available Not Available No t Available methylpre dnisolone 4 mg tablets in a dose pack TAKE BY MOUTH DIRECTED ON INSIDE OF PACKAGE 08/07 completed Not Available Not Available Not Available albuterol sulfate HFA 90 mcg/actua tion aerosol inhaler Inhale 2 puffs every 4 hours by inhalati on route. active Not Available Not Available No t Available Vitamin D2 1,250 mcg (50,000 unit) capsule TAKE 1 CAPSULE BY MOUTH EVERY TWO WEEKS IN THE MORNING FOR 30 DAYS active Not Available Not Available No t Available ondansetr on 4 mg disintegr ating tablet DISSOLVE 1 TABLET IN MOUTH EVERY 8 HOURS NEEDED FOR NAUSEA AND VOMITING 01/11 completed Not Available Not Available Not Available losartan 100 mg tablet TAKE 1 TABLET BY MOUTH ONCE DAILY 05/30 completed Not Available Not Available Not Available metformin ER 500 mg tablet,ex tended release 24 hr TAKE 1 TABLET BY MOUTH TWICE DAILY active Not Available Not Available No t Available lisinopri l 2.5 mg tablet TAKE 1 TABLET EVERY DAY 2024 active Not Available Not Available Not Tramaine barker escitalop purvi 10 mg tablet Take 1 tablet every day by oral route. active Not Available Not Available No t Available ezetimibe 10 mg tablet Take 1 tablet every day by oral route. 03/28 completed Not Available Not Available Not Available rosuvasta tin 5 mg tablet TAKE 1 TABLET BY MOUTH ONCE DAILY 04/10 completed Not Available Not Available Not Available rosuvasta tin 10 mg tablet Take 1 tablet every day by oral route for 30 days. 05/17 completed Not Available Not Available Not Available rosuvasta tin 40 mg tablet TAKE 1/2 TABLET EVERY DAY AT BEDTIME 08/26 completed Not Available Not Available Not Available bupropion HCl XL 150 mg 24 hr tablet, extended release Take 1 tablet every day by oral route. active Not Available Not Available No t Available Accu-Chek Adia Control Soln solution USE DIRECTED active Not Available Not Available No t Available Januvia 50 mg tablet TAKE 1 TABLET EVERY DAY IN THE MORNING 03/24 completed Not Available Not Available Not Available Symbicort 160 mcg-4.5 mcg/actua tion HFA aerosol inhaler INHALE 2 PUFFS BY MOUTH EVERY 12 HOURS, RINSE MOUTH AND SPIT AFTER EACH USE active Not Available Not Available No t Available Suprep Bowel Prep Kit 17.5 gram-3.13 gram-1.6 gram oral solution 04/10 completed Not Available Not Available Not Available Farxiga 10 mg tablet Take 1 tablet every day by oral route for 90 days. active Not Available Not Available No t Available Jardiance 25 mg tablet Take 1 tablet every day by oral route 08/07 completed Not Available Not Available Not Available Accu-Chek Guide test strips USE 1 STRIP TWICE DAILY TO TEST BLOOD GLUCOSE active Not Available Not Available No t Available Accu-Chek Guide Glucose Meter USE TO TEST BLOOD GLUCOSE TWICE A DAY active Not Available Not Available No t Available Bydureon BCise 2 mg/0.85 mL subcutane ous auto-inje ctor INJECT 2 MG EVERY WEEK BY SUBCUTAN EOUSLY AT DINNER active Not Available Not Available No t Available Ozempic 0.25 mg or 0.5 mg (2 mg/1.5 mL) subcutane ous pen injector INJECT 0.5 MG EVERY WEEK SUB Q WITH MEALS FOR 30 DAYS 09/08 completed Not Available Not Available Not Available OneTouch Ultra Blue Test Strip USE 1 STRIP TO CHECK GLUCOSE ONCE DAILY dx e11.9 08/07 completed Not Available Not Available Not Available OneTouch Delica Plus Lancet 33 gauge USE 1 LANCET TO CHECK GLUCOSE ONCE DAILY 08/07 completed Not Available Not Available Not Available Paxlovid 300 mg (150 mg x 2)-100 mg tablets in a dose pack TAKE 1 DOSE (2 NIRMATRE LVIR TABS AND 1 RITONAVI R TAB AT ONE TIME) TWICE DAILY FOR 5 DAYS. 06/14 completed Not Available Not Available Not Available DropSafe Alcohol Prep Pads USE TO TEST SUGARS 2 TIMES DAILY active Not Available Not Available No t Available Mounjaro 7.5 mg/0.5 mL subcutane ous pen injector INJECT 1/2 (ONE-PHOEBE F) ML ONCE A WEEK 01/11 completed Not Available Not Available Not Available Mounjaro 5 mg/0.5 mL subcutane ous pen injector INJECT 0.5 ML UNDER THE SKIN ONCE A WEEK 09/14 completed Not Available Not Available Not Available Mounjaro 2.5 mg/0.5 mL subcutane ous pen injector INJECT 0.5 ML SUBCUTAN EOUSLY ONCE WEEKLY 09/14 completed Not Available Not Available Not Available Ozempic 0.25 mg or 0.5 mg (2 mg/3 mL) subcutane ous pen injector Inject 0.25 mg every week by subcutan eous route for 30 days. 2024 active Not Available Not Available Not Avai lable Vitals Date Recorded Body height Body mass index (BMI) Body weight Body temperature Heart rate Oxygen saturation Oxygen saturation in Arterial blood by Pulse oximetry Pain severity - 0-10 verbal numeric rating [Score] - Reported Systolic And Diastolic Provider Name and Address Organization Details Last Updated DateTime 162.56 cm 34.8 kg/m2 23700.2 5 g 97.5 [degF] 70 /min 98 % 98 % 0 140/62 mm[Hg] Nikki Greer MA [place] - [facility] [address] [facility] 5 15:50:52 Date Recorded Body height Body mass index (BMI) Body weight Body temperature Heart rate Systolic And Diastolic Provider Name and Address Organization Details Last Updated DateTime 4 162.56 cm 34.5 kg/m2 94738.0 7 g 97.5 [degF] 84 /min 122/62 mm[Hg] [place] Florentino [facility] [address] [facility] 4 15:33:27 Date Recorded Body height Body mass index (BMI) Body weight Body temperature Heart rate Oxygen saturation Oxygen saturation in Arterial blood by Pulse oximetry Systolic And Diastolic Provider Name and Address Organization Details Last Updated DateTime 4 162.56 cm 34.5 kg/m2 21142.0 7 g 97.8 [degF] 74 /min 91 % 91 % 132/60 mm[Hg] Nikki Greer MA [place] [employer] [facility] [employer] 4 16:27:51 Date Recorded Body height Body mass index (BMI) Body weight Heart rate Systolic And Diastolic Provider Name and Address Organization Details Last Updated DateTime 10/09/2023 162.56 cm 34.5 kg/m2 86230.07 g 78 /min 159/82 mm[Hg] Nirali Chaudhari [facility] [employer] 4 15:41:47 Date Recorded Body height Body mass index (BMI) Body weight Body temperature Heart rate Systolic And Diastolic Provider Name and Address Organization Details Last Updated DateTime 4 162.56 cm 33.8 kg/m2 30708.7 g 97.3 [degF] 72 /min 122/66 mm[Hg] [place] Florentino [facility] 4 11:54:45 Date Recorded Pain severity - 0-10 verbal numeric rating [Score] - Reported Provider Name and Address Organization Details Last Updated DateTime 11/29/2023 0 Edgardo Yu LPN [facility] 11/29/2023 12:04:59 Social History Question Answer Notes LastModified by Organization Details LastModified Time Tobacco Smoking Status Former Smoker Quit 2017 [place] Florent[place], [facility] 08/08/2023 15:27:34 Do You Have An Advance Directive? Yes Packet Sent [id number].[id number] [id number] Information not available 04/12/2022 How Many Years Have You Consumed Alcohol? 30 [email or web address] Information not available 11/29/2023 Are You Blind Or Do You Have Difficulty Seeing? No [email or web address] Information not available 11/29/2023 Is Blood Transfusion Acceptable In An Emergency? Yes Information not available 11/29/2023 What Is Your Level Of Caffeine Consumption? Moderate MIGRATION.0301 [id number] Information not available 04/12/2022 How Much Tobacco Do You Chew? None MIGRATION.0301 [id number] Information not available 04/12/2022 In The 14 Days Before Symptom Onset, Have You Had Close Contact With A Laboratory-conf irmed COVID-19 While That Case Was Ill? No MIGRATION.0301 [id number] Information not available 04/12/2022 In The 14 Days Before Symptom Onset, Have You Had Close Contact With A Person Who Is Under Investigation For COVID-19 While That Person Was Ill? No MIGRATION.0301 [id number] Information not available 04/12/2022 Are You Deaf Or Do You Have Serious Difficulty Hearing? No MIGRATION.0301 [id number] Information not available 04/12/2022 What Type Of Diet Are You Following? REGULAR Low Carb MIGRATION.0301 [id number] Information not available 04/12/2022 Which Illicit Or Recreational Drugs Have You Used? None MIGRATION.0301 [id number] Information not available 04/12/2022 What Is The Highest Grade Or Level Of School You Have Completed Or The Highest Degree You Have Received? [id number] [email or web address] Information not available 11/29/2023 How Many Days Of Moderate To Strenuous Exercise, Like A Brisk Walk, Did You Do In The Last 7 Days? 0 [email or web address] Information not available 11/29/2023 Have There Been Any Changes To Your Family Or Social Situation? No Information not available 08/08/2023 What Is The Fluoride Status Of Your Home? Unknown Information not available 08/08/2023 When Did You Quit Smoking? 6-10yearssincelast cigarette Information not available 08/08/2023 Are There Any Guns Present In Your Home? Yes Information not available 08/08/2023 Do You Use Insect Repellent Routinely? No Information not available 11/29/2023 Where Do You Live? SingleLevelHouse Information not available 08/08/2023 Advance Directive- Providers Has Reviewed Directive And Consents To Follow Them (insert Provider Name With Any Objectives In Notes Field) No [id number].0301 [id number] Information not available 04/12/2022 Presence Of Domestic Violence No [email or web address] Information not available 11/29/2023 Guns Present In The Home? Yes Information not available 11/29/2023 Are You Able To Care For Yourself? Yes [email or web address] Information not available 11/29/2023 Are You Blind Or Do Yo Have Difficulty Seeing? No [email or web address] Information not available 11/29/2023 Are You Deaf Or Do You Have Serious Difficulty Hearing? No Information not available 11/29/2023 General Stress Level? Low [email or web address] Information not available 11/29/2023 Live Alone Of With Others? With Others Information not available 11/29/2023 Do You Have A Medical Power Of Well Reactivator Operator? No [email or web address] Information not available 11/29/2023 What Was The Date Of Your Most Recent Tobacco Screening? 04/17/2024 [email or web address] Information not available 04/17/2024 How Many Children Do You Have? 2 [email or web address] Information not available 11/29/2023 Have You Ever Been Counseled For Unhealthy Alcohol Use? No [email or web address] Information not available 11/29/2023 Do You Have Any Pets? Yes Cats [email or web address] Information not available 11/29/2023 Do You Use Protection During Sex? No [email or web address] Information not available 11/29/2023 What Is Your Relationship Status? MIGRATION.0301 [id number] Information not available 04/12/2022 Do You Use Your Seat Belt Or Car Seat Routinely? Yes Information not available 08/08/2023 Are You Sexually Active? Yes [email or web address] Information not available 11/29/2023 Do You Have Smoke And Carbon Monoxide Detectors In Your Home? Yes Smoke Detectors MIGRATION.0301 [id number] Information not available 04/12/2022 Are You Passively Exposed To Smoke? No Information not available 08/08/2023 Are There Any Smokers In Your House? No Information not available 08/08/2023 How Much Tobacco Do You Smoke? No MIGRATION.0301 [id number] Information not available 04/12/2022 What Types Of Sporting Activities Do You Participate In? None [email or web address] Information not available 11/29/2023 Do You Use Sunscreen Routinely? No [email or web address] Information not available 11/29/2023 How Many Years Have You Smoked Tobacco? 40 MIGRATION.0301 [id number] Information not available 04/12/2022 Have You Recently Traveled Abroad? No MIGRATION.0301 033227 Information not available 04/12/2022 Do You Have Difficulty Walking Or Climbing Stairs? No MIGRATION.0301 [id number] Information not available 04/12/2022 Do You Have Any Dietary Restrictions? No Information not available 11/29/2023 How Many Days In The Past Year Have You Consumed 4 Or More Drinks? -1 [email or web address] Information not available 11/29/2023 Sex: Female Functional Status Question Answer Note LastModified by Organizat ion Details LastModified Time Do you use any illicit or recreational drugs? No Information not available 08/08/2023 Do you or have you ever used any other forms of tobacco or nicotine? No Information not available 08/08/2023 What is your level of alcohol consumption? Occasional Information not available 09/14/2022 Do you or have you ever used smokeless tobacco? Never used smokeless tobacco MIGRATION.30743 64495 Information not available 04/12/2022 Are you currently employed? No retired Information not available 08/08/2023 Do you have transportation difficulties? No Information not available 11/29/2023 Are you able to walk? YESWOREST MIGRATION.80587 [id number] Information not available 04/12/2022 Do you have difficulty doing errands alone? No MIGRATION.36581 18057 Information not available 04/12/2022 Are you able to care for yourself independently? Yes MIGRATION.16723 99880 Information not available 04/12/2022 Do you have difficulty dressing, bathing, grooming, or toileting? No MIGRATION.22830 65093 Information not available 04/12/2022 Do you or have you ever used e-cigarettes or vape? Never used electronic cigarettes MIGRATION.85316 19574 Information not available 04/12/2022 What is your exercise level? None Active life [email or web address] Information not available 11/29/2023 Mental Status Question Answer Note LastModified by Organizat ion Details LastModified Time Do you feel stressed (tense, restless, nervous, or anxious, or unable to sleep at night)? [id number] Information not available 11/29/2023 Do you have difficulty concentrating, remembering or making decisions? No [id number].[id number] 26 Information not available 04/12/2022 Family History Relationship Description Onset Age of this Age Resolved Age Notes LastModified by Organization Details LastModified Time Father Heart disease triple bypass x 2 MIGRATION.502 [id number] Not available 04/12/2022 00:48:13 Father Malignant tumor of colon MIGRATION.712 [id number] Not available 04/12/2022 00:48:13 Father Malignant neoplasm of urinary bladder MIGRATION.158 [id number] Not available 04/12/2022 00:48:13 Father Malignant neoplasm of prostate MIGRATION.632 [id number] Not available 04/12/2022 00:48:13 Mother Malignant tumor of colon 55 MIGRATION.963 [id number] Not available 04/12/2022 00:48:13 Father Hypertensive disorder Not available 2022 15:13:57 Unspecified Relation Hypertensive disorder GRANDF ATHER Not available 09/14/2022 15:13:57 Unspecified Relation Heart disease GRANDF ATHER Not available 09/14/2022 15:14:20 Mother Osteoporosis Not availa ble 09/14/2022 15:14:45 Medical History Condition Response BLINDNESS N RHEUMATIC FEVER N KIDNEY STONES N BLADDER PROBLEMS N OTHER # 1 N POLIO N LUNG DISEASE/DISORDER N RADIATION / CHEMOTHERAPY N COPD N Other # 2 N BLOOD DISEASES N SURGERY N EAR OR HEARING PROBLEMS N MUMPS N BOWEL PROBLEMS N FEMALE PROBLEMS / INFECTIONS N DEPRESSION (INCLUDING POST ) N STROKE/TIA N THYROID DISEASE N ULCERS N BENIGN PROSTATIC HYPERPLASIA N MEASLES N CERVICALGIA N TB SKIN TEST N MYOCARDIAL INFARCTION N PARAPELGIA N OBESITY Y GERD/NAUSEA Y ANEURYSM N URINARY/BLADDER/KIDNEY PROBLEMS N INPATIENT PSYCH CARE N CORONARY ARTERY DISEASE (CAD) N MENIERE'S DISEASE N ADDICTION CONCERNS N ENDOMETRIOSIS N USE OF BLOOD THINNERS N SKIN PROBLEMS N EMPHYSEMA N GASTROINTESTINAL DISORDER N MUSCLE,JOINT OR BONE PROBLEMS N GASTROINTESTINAL BLEEDING N BLOOD CLOTS N ASTHMA N CATARACTS N ERECTILE DYSFUNCTION N GI PROBLEMS N CHF N Low Testosterone N NEUROPATHY N INFERTILITY N AIDS/HIV N FRACTURES N VISION/EYE PROBLEMS N LIVER DISEASE N MALE HYPOGONADISM N HYPERTENSION N ANXIETY DISORDER N BLOOD TRANSFUSION N ANEMIA/BLOOD DISORDER N CHRONIC EAR INFECTIONS N BRONCHITIS N TUBERCULOSIS N GLAUCOMA N FOOT PROBLEM N DIVERTICULITIS N CHICKENPOX N SLEEP APNEA N ALLERGIES/HAYFEVER N INFECTIOUS DISEASE N HEART ARRHYTHMIA N PROSTATE N INSOMNIA N HIGH CHOLESTEROL / HYPERLIPIDEMIA Y HYPERTHYROIDISM N EYE PROBLEMS Y EATING DISORDER N NEUROLOGICAL PROBLEMS N EDEMA N CHRONIC PAIN SYNDROME N HYPOTHYROIDISM N CAROTID BLOCKAGE N CONSTIPATION N BACK / NECK PROBLEMS N HAVE YOU BEEN HOSPITALIZED OR SEEN IN [facility] ER IN THE PAST YEAR ? N ATHEROSCLEROSIS N BREAST PROBLEMS N DIALYSIS N ECZEMA N FIBROMYALGIA N OSTEOPOROSIS Y ARTHRITIS N NO SIGNIFICANT PAST MEDICAL HISTORY N APPENDICITIS N DIABETES, TYPE Y BAD TEETH N HEARTBURN / REFLUX N ADD/ADHD N AUTISM SPECTRUM DISORDER (ASD) N HEPATITIS / LIVER DISEASE N PULMONARY DISEASE N GOUT N SLEEP DISORDER N ALZHEIMER'S DISEASE N PAIN N HERPES N DEMENTIA N HEADACHES/MIGRAINES N SEIZURES/EPILEPSY N VASCULAR DISEASE N PACEMAKER N DIZZINESS N HEART DISEASE/HEART PROBLEMS N KIDNEY DISEASE N DEVELOPMENTAL OR BEHAVIORAL DISORDERS N MULTIPLE SCLEROSIS N SCARLET FEVER N MENTAL DISORDER/ILLNESS N CARDIAC ARRHYTHMIA N CANCER: SPECIFY N ANESTHESIA COMPLICATIONS N PNEUMONIA N ATRIAL FIBRILLATION N PULMONARY EMBOLISM N AUTOIMMUNE DISEASE N Gynecological History Statement/Question Response Date of Last Mammogram Date of LMP STIs/STDs N Date of Last Pap Current Control Method Hysterectom y Breast Problems no How many live births 2 Date of Last Colonoscopy Most Recent Bone Density Sexually Active? N Menses Monthly N Discharge no Obstetrics History GPAL:G 2 P 2 0 0 2 Type Value Multiple Births 0 Full Term 2 Induced 0 Spontaneous 0 Premature 0 Living 2 Ectopics 0 Total 2 Immunizations Vaccine Type Date Status Note Provider Nam e and Address Organization Details Recorded Time COVID-19 vaccine, vector-nr, rS-ChAdOx1, PF, 0.5 mL 1 completed Not Available [facility] 01:20:42 pneumococcal polysaccharide PPV23 4 completed Kena Lim MD [address] [facility], [facility] [address], [place], [address], [facility] [address] [facility] 08/19/2023 16:22:36 Influenza, high-dose, trivalent, PF 4 completed Bess Grace, BRIGETTE Watson - [facility] [employer] [facility] 11/19/2023 15:00:41 Past Encounters Encounter ID Performer Location Encounter Start Date Encounter Closed Date Diagnosis/Indication Diagnosis SNOMED-CT Code Diagnosis ICD10 Code Diagnosis Note [id number] [facility] [place] [facility] [address] [facility] [address] [place] [address] 04/19/2020 00:00:00 04/20/2020 14:07:58 [id number] [facility] Primary Care [address] [place] [address] 06/16/2020 00:00:00 06/16/2020 18:07:01 [id number] Dianne Butt MD _YOSVANY IGRATION_ DEFAULT_1 _1 , 07/01/2020 00:00:00 07/01/2020 17:18:17 [id number] [facility] [place] [address] [place] [address] 02/08/2021 00:00:00 02/10/2021 11:30:37 [id number] Dianne Butt MD _YOSVANY IGRATION_ DEFAULT_1 _1 , 03/24/2021 00:00:00 03/24/2021 18:23:29 [id number] [facility] _EDE_M IGRATION_ DEFAULT_1 _1 , 09/08/2021 00:00:00 09/08/2021 12:07:[id number] [facility] Primary Care [place] [address] [place] [address] 02/14/2022 00:00:00 02/14/2022 17:03:[id number] [facility] Primary Care [address] [place] [address] 03/28/2022 00:00:00 04/09/2022 17:26:59 [id number] Lawanda Tipton MD [facility] Primary Care [facility] [address] [facility] [address] [place] [address] 06/14/2022 11:20:57 06/14/2022 12:18:51 Diabetes mellitus 02482968 E11.9 d/c glimeperid eincrease mounjaro 5 mg Gastroesop hageal reflux disease without esophagitis 446739828 K21.9 continue pantoprazo le Allergy to dust 92285891 0 J30.89 [id number] Chicho Ragland DPM [facility] Podiatry [place] [address] [facility] [address] [place] [address] 09/14/2022 14:20:16 09/14/2022 15:49:16 Osteoarthritis 964459455 M19.90 left dorsal midfootEdu cated on conditionP atient elects to continue with conservati ve therapyRec ommend topical Voltaren gel, rice therapy, recommend supportive shoe gear, recommend over-the-c ounter orthotics Powerstep Pro Techfollow -up in 1 month for possible injection [id number] Lawanda Tipton MD [facility] Primary Care [address] [place] [address] 01/11/2023 10:22:36 01/11/2023 11:06:39 Chronic cough 13087489 R05.3 persistent cough x several monthsform er smokerchec k CT chestok to use albuterol hfa prn Diabetes mellitus 641160 09 E11.9 could not tolerate mounjaro due to GI s/econtinu e glimepirid e and metforminc heck labs Hyperlipidemia 36963708 E78.5 History of recurrent urinary tract infection 754116603 Z87.440 Vitamin D deficiency 347 93672 E55.9 Weight gain 6707463 R63. [id number] [facility] Primary Care [facility] [address] [facility] [address] [place] [address] 04/17/2023 09:42:12 04/17/2023 10:08:07 Essential hypertension 26346330 I10 not in good controld/c lisinopril trial of losartan 100 mg dailycheck home blood pressure readings at home 1-2x per week Dyspnea on exertion 6084 5006 R06.09 referral given for pulmonaryr epeat CT chest 3 months is due this month [id number] Lawanda Tipton MD [facility] Primary Care [facility] [address] [facility] [address] [place] [address] 05/31/2023 11:37:53 05/31/2023 12:11:24 Essential hypertension 32816407 I10 not in good controld/c lisinopril trial of losartan 100 mg dailycheck home blood pressure readings at home 1-2x per week 05/31/23: update not in good controladd amlodipine 10 mg dailychang e losartan/h ctz 100/25 mg dailywill get labs and bp check after 1 [address] [facility] [id number] Kena gale MD [facility] Internal Med [facility] [address] [facility] , [place] [address] 08/08/2023 15:08:11 08/08/2023 16:26:29 Screening - NAD 499990791 Z13.9 C-scope: Done by Dr Degroot as per her history last year Mammogram: Get thisDEXA: Get this WWE: Get this Get yearly flu shotGet TdapGet Shingrix vaccineGet COVID 19 boostersCa n do RSV vaccine RTC in 3 months, do labs, ER if worse, she did verbalize her understand ing of the above Essential hypertension 39459056 I10 On amlodipine 10mg dailyWill add lisinopril 2.5mg daily for SHAILESH-I coverageGe t labs Screening for malignant neoplasm of breast 110813903 Z12.39 Screening for osteoporosis 275005599 Z13.820 Gynecologi c examination 28126220 Z01.419 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 343490931 E11.9 On metformin ER 500mg bidOn glimepirid e 2mg2 tabs bidGet labsSee eye and foot Hyperlipidemia 92542159 E78.5 On rosuvastai tn 40mg dailyGet labs Gastroesop hageal reflux disease without esophagitis 750781825 K21.9 On pantoprazo leGet EGD done Chronic ob structive pulmonary disease 50507851 J44.9 CT chest: 04/23/[address] Abad 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 CT Chest 04/23/[address] Agudelo Ex-cigarette smoker [address] chest 04/23/[address] Abad Administra tion of pneumococcal vaccine 00877221 Z23 Skin lesion 85858254 L98 .9 Small raised dark mole noted on the upper backGet a referral to dermatolog y [id number] Kena gale MD [facility] Internal Med [facility] [address] [facility], [facility] [address] [place] [address] 08/30/2023 16:18:49 08/30/2023 17:00:54 Screening - NAD 150770386 Z13.9 C-scope: Done by Dr Degroot as per her history last year Mammogram: Get thisDEXA: Get this WWE: Get this Get yearly flu shotGet TdapGet Shingrix vaccineGet COVID 19 boostersCa n do RSV vaccine RTC in 3 months, do labs, ER if worse, she did verbalize her understand ing of the above Essential hypertension 62039558 I10 On amlodipine 10mg dailyWill add lisinopril 2.5mg daily for SHAILESH-I coverageGe t labs Screening for malignant neoplasm of breast 599988618 Z12.39 Screening for osteoporosis 867246551 Z13.820 Gynecologi c examination 30526513 Z01.419 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 228901289 E11.9 On metformin ER 500mg bidOn glimepirid e 2mg2 tabs bidSee eye and foot MDNeeds to see endocrine, has declined, wants to do more diet controlSta rt on insulin, has declined, wants to diet and exercise, states that she has been very non compliant with her diet 08/30/2023 , repeat the labs Hyperlipidemia 38770377 E78.5 Now on atorvastat in 80mg dailyNot on rosuvastai tn 40mg dailyGet labs Gastroesop hageal reflux disease without esophagitis 231307424 K21.9 On pantoprazo leGet EGD done Chronic ob structive pulmonary disease 72796652 J44.9 CT chest: 04/23/[address] Abad Pulmonary artery aneurysm 488949752 I28.1 CT Chest 04/23/[address] Agudelo Skin lesion 31416643 L98 .9 Small raised dark mole noted on the upper backGet a referral to dermatolog y Ex-cigarette smoker [address] chest 04/23/[address] Abad Proteinuria 85496353 R80 .9 Needs to see nephrology [id number] Chicho Ragland DPM [facility] [place] [address] [facility] [address] [place] [address] 10/09/2023 15:01:17 10/10/2023 14:53:51 Diabetes mellitus 87820433 E11.9 continue diabetic control per PCP recommenda tionContin ue supportive shoe gear check feet daily for open wounds infectionF ollow-up in 1 year [id number] Kena gale MD [facility] Internal Med [place] [address] [facility] [place] [address] [place] [address] 11/29/2023 11:33:56 11/29/2023 12:27:13 Screening - NAD 286762405 Z13.9 C-scope: Done by Dr Degroot as per her history last year Mammogram: Get this DEXA: 09/04/2023 : Osteopenia , more calcium and vit d WWE: Get this Get yearly flu shotGet TdapGet Shingrix vaccineGet COVID 19 boostersCa n do RSV vaccine RTC in 3 months, do labs, ER if worse, she did verbalize her understand ing of the above Essential hypertension 54054106 I10 Not on amlodipine 10mg dailyOn lisinopril 2.5mg daily for SHAILESH-I coverageGe t labs Screening for malignant neoplasm of breast 656037906 Z12.39 Screening for osteoporosis 948120638 Z13.820 Gynecologi c examination 92258878 Z01.419 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 881473215 E11.9 On metformin ER 500mg bidOn glimepirid e 2mg2 tabs bidSee eye and foot Hyperlipidemia 98468030 E78.5 On atorvastat in 80mg dailyNot on rosuvastat in 40mg dailyGet labs Gastroesop hageal reflux disease without esophagitis 007627884 K21.9 On pantoprazo leGet EGD done Chronic ob structive pulmonary disease 77593219 J44.9 CT chest: 04/23/[address] Abad Pulmonary artery aneurysm 529008696 I28.1 CT Chest 04/23/[address] Agudelo Skin lesion 52425617 L98 .9 Small raised dark mole noted on the upper backGet a referral to dermatolog y Ex-cigarette smoker [address] chest 04/23/[address] Abad Proteinuria 36605034 R80 .9 US kidneys 10/12/2023 Dr Baker Adult heal th examination 422481049 Z00.00 Screening for disorder 297644168 Z13.9 Increased liver function 83946240 R94.5 Get labs and US liver [id number] Kena gale MD [facility] Internal Med [place] [address] [facility], [place] [address] [place] [address] 04/17/2024 15:39:37 04/17/2024 16:48:59 Screening - NAD 958173188 Z13.9 C-scope: Done by Dr Degroot as per her history last year Mammogram: 02/12/2024 : Neg DEXA: 09/04/2023 : Osteopenia , more calcium and vit d WWE: Get this Get yearly flu shotGet TdapGet Shingrix vaccineGet COVID 19 boostersCa n do RSV vaccine RTC in 3 months, do labs, ER if worse, she did verbalize her understand ing of the above Essential hypertension 44437322 I10 Not on amlodipine 10mg dailyOn lisinopril 2.5mg daily for SHAILESH-I coverageGe t labs Screening for osteoporosis 964192969 Z13.820 Gynecologi c examination 68583856 Z01.419 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 440797463 E11.9 On metformin ER 500mg bidOn glimepirid e 2mg2 tabs bid Was on Mounjaro and also on OzempicNo thyroid or parathyroi d or pancreatic symptomsNo MEN 2 or MCTWill restart on the ozempic at 0.25mg weekly 03/20/2024 Take supplement s and hydrateSee eye and foot Hyperlipidemia 31420619 E78.5 On atorvastat in 80mg dailyNot on rosuvastat in 40mg dailyGet labs Gastroesop hageal reflux disease without esophagitis 908614562 K21.9 On pantoprazo leGet EGD done Chronic ob structive pulmonary disease 81594765 J44.9 CT chest: 04/23/[address] Perkins in 07/2024, sees Kelley GOMEZ in 07/2024 Pulmonary artery aneurysm 035087080 I28.1 CT Chest 04/23/[address] Agudelo Skin lesion 86888773 L98 .9 Small raised dark mole noted on the upper backGet a referral to dermatolog y S/p surgery by Dr Barroso, no more apts as per history Ex-cigarette smoker [address] chest 04/23/[address] Abad Proteinuria 63389139 R80 .9 US kidneys 10/12/2023 Dr Baker Increased liver function 95416007 R94.5 US liver 01/08/2024 : Fatty liver Get labs Health Concerns Section Related Observation LastModified by Organization Detai ls LastModified Time None Recorded Concern Status LastModified by Organization Details LastModified Time None Recorded Advance Directives Directive Y: Packet sent Payers Insurance Date Sequence Insurance Name Policy Number Policy [employer] Covered Member ID [employer] Member ID Guarantor Name 06/30/2024 1 [employer] (MEDICARE REPLACEMENT/A DVANTAGE - HMO) Cira E Galati [id number] Cira E Galati OBGyn Episode No OBEpisode recorded.
== END 2024-09-08 08:57 | disposition home or self-care (01) ==
PROVIDERS: PCP Internal Medicine; Visit Provider Physician Assistant
DX: R91.1 Solitary pulmonary nodule (principal)
CPT/HCPCS: 71250